=== PATIENT | female | born 1950 | race Caucasian/White ===

== ENCOUNTER → 2016-09-15 | Outpatient (CLI) | payer BC ==
[~2016-09-15] MED LIST: ALUM1SUS57 PO; CALC600T9 PO; CHOL1000 PO; CYAN10005 PO; FENO145T26 PO; FENO48TA9 PO; MULT-506 PO; MULTCAP7 PO; OMEGCAP2 PO; RANI150T3 PO; TRIATAB3 PO
--- NOTE | 2016-09-15 14:17 | MAMMOGRAPHY REPORT ---
BILATERAL DIGITAL SCREENING MAMMOGRAM WITH CAD: 09/15/2016 CLINICAL HISTORY: Routine screening. Patient has no complaints. TECHNIQUE: Current study was also evaluated with a Computer Aided Detection (CAD) system. Bilatera l CC and MLO views were obtained. COMPARISON: Comparison is made to exams dated: 09/14/2015 mammogram, 09/12/2014 mammogram, 06/10/2013 mammogram, 05/21/2012 mammogram, 05/18/2011 mammogram, and 04/20/2010 mammogram - [facility]. BREAST COMPOSITION: The tissue of both breasts is heterogeneously dense, which may obscure small ma sses. FINDINGS: No suspicious masses, calcifications, or areas of architectural distortion are noted in e ither breast. There has been no significant interval change compared to prior exams. Bilateral asym metries are stable compared to prior exams. IMPRESSION: ACR BI-RADS CATEGORY 2: BENIGN There is no mammographic evidence of malignancy. A 1 year screening mammogram is recommended. The p atient will receive written notification of the results. Approximately 10% of breast cancers are not detected with mammography. A negative mammographic repor t should not delay biopsy if a clinically suggestive mass is present. Jessica Brand M.D. /:09/15/2016 12:44:22 Restuarant Crew Worker: Grace NAVARRETE(Hemant)(Mary Grace)(PITO), [facility] letter sent: Normal 1/2 BI-RADS Code: ACR BI-RADS Category 2: Benign
--- NOTE | 2016-09-23 12:43 | CODING QUERY MEDICAL NECESSITY ---
: 1950 SUPPORTING DIAGNOSIS NEEDED A supporting diagnosis is required for the test/procedure performed on this patient in order for us to be reimbursed by the patient's insurance. Please provide a supporting diagnosis for the following test/procedure listed below next to the test name along with your signature. *If there is no additional diagnosis for this patient that would support the following test/procedure please document that below next to the test/procedure. Test(s)/Procedure(s) that require a supporting diagnosis: * BONE DENSITOMETRY DOS: 09/15/16 DIAGNOSIS: Provider Signature: Date: Thank you Zaina Larson [email or web address] Information Management Once completed, please kindly fax back to [phone] For questions please call [phone]
== END | disposition home or self-care (01) ==
LOC: C.MAMM 12:23
PROVIDERS: ATTEND Internal Medicine
DX: Z00.00 Encounter for general adult medical examination without abnormal findings (principal); Z12.31 Encounter for screening mammogram for malignant neoplasm of breast; M85.80 Other specified disorders of bone density and structure, unspecified site; E55.9 Vitamin D deficiency, unspecified

== ENCOUNTER → 2016-09-29 | Outpatient (CLI) | payer BC ==
[2016-09-29 09:42] LABS: BASO % 1.3 %; BASO ABS # 0.07 K/uL (0-0.2); COMPLETE YES; EOS % 3.5 %; HEMATOCRIT 40.7 % (37-47); IG% 0.2 %; LYMPH % 24.8 %; LYMPH ABS # 1.35 K/uL (1.2-3.4); MEAN CELL VOLUME 85.9 fL (80-100); MEAN CORPUSCULAR HEMOGLOBIN 28.7 pg (25-34); MEAN CORPUSCULAR HGB CONC 33.4 g/dl (32-36); MEAN PLATELET VOLUME 11.1 fL (7.4-10.4); MONO % 9.7 %; NEUT % 60.5 %; PLATELET COUNT 297 K/uL (130-400); RED BLOOD COUNT 4.74 M/uL (4.2-5.4); WHITE BLOOD COUNT 5.44 K/uL (4.8-10.8)
[2016-09-29 09:54] LABS: ALT/SGPT 18 U/L (12-78); BLOOD UREA NITROGEN 27 mg/dl (7-18); BUN/CREATININE RATIO 22.1 (10-20); CALCIUM 9.5 mg/dl (8.5-10.1); CARBON DIOXIDE 27 mmol/L (21-32); CHLORIDE 104 mmol/L (98-107); CHOLESTEROL 147 mg/dl (0-200); GLUCOSE 89 mg/dl (70-99); POTASSIUM 4.1 mmol/L (3.5-5.1); SODIUM 139 mmol/L (136-145); TRIGLYCERIDES 67 mg/dl (0-150); VERY LOW DENSITY LIPOPROT CALC 13 mg/dl
[2016-09-29 10:02] LABS: ALB/GLOB RATIO 1.1 (0.9-2); ALKALINE PHOSPHATASE 51 U/L (45-117); AST/SGOT 13 U/L (15-37); CHOLESTEROL/HDL RATIO 2.7; HDL CHOLESTEROL 55 mg/dl; LDL CHOLESTEROL CALCULATED 79 mg/dl
[2016-09-29 10:04] LABS: ESTIMATED AVERAGE GLUCOSE 108 mg/dl; HA1C FLAG Normal (Normal)
== END | disposition home or self-care (01) ==
LOC: C.LAB 08:56
PROVIDERS: ATTEND Internal Medicine
DX: E78.5 Hyperlipidemia, unspecified (principal); E55.9 Vitamin D deficiency, unspecified; M25.50 Pain in unspecified joint; R73.9 Hyperglycemia, unspecified

== ENCOUNTER → 2016-11-19 | Outpatient (CLI) | payer BC ==
--- NOTE | 2016-11-19 12:18 | DIAGNOSTIC IMAGING REPORT ---
RIGHT KNEE 4 VIEWS CLINICAL HISTORY: Right knee pain. Recent fall. FINDINGS: AP, crosstable lateral, tunnel, and sunrise views of the right knee are compared to study dated 12/21/2015. The skeletal structures are osteopenic. No fracture is seen. Irregularity/osteophyte formation along the medial tibial plateau is similar to previous. There is mild tricompartmental degenerative joint space narrowing, greatest at the patellofemoral articulation. No osteochondral defect is seen on the tunnel view. Marginal osteophytes are again noted. There is no joint effusion. Mild soft tissue swelling is present around the knee. IMPRESSION: Mild soft tissue swelling with no acute bony abnormality identified in the right knee. Electronically signed by: Qasim Kirkpatrick M.D. 11/19/2016 12:17 PM Dictated Date/Time: 11/19/2016 12:15 PM
--- NOTE | 2016-11-19 12:20 | DIAGNOSTIC IMAGING REPORT ---
RIGHT ANKLE 3 VIEWS CLINICAL HISTORY: Recent fall. Right ankle pain. FINDINGS: 3 views of the right ankle are obtained. No prior studies are available for comparison at the time of dictation. The skeletal structures are osteopenic. No fracture is seen. The ankle mortise is intact. There are dorsal and plantar calcaneal enthesophytes. No joint effusion is identified. Mild soft tissue swelling is noted. IMPRESSION: Mild soft tissue swelling with no radiographic evidence of right ankle fracture. Electronically signed by: Qasim Kirkpatrick M.D. 11/19/2016 12:18 PM Dictated Date/Time: 11/19/2016 12:17 PM
== END | disposition home or self-care (01) ==
LOC: C.RADBC 11:48
PROVIDERS: ATTEND Internal Medicine
DX: M25.561 Pain in right knee (principal); M25.571 Pain in right ankle and joints of right foot

== ENCOUNTER → 2016-12-23 | Outpatient (CLI) | payer BC | END | disposition home or self-care (01) | LOC: C.PAPS 11:47 | PROVIDERS: ATTEND Obstetrics & Gynecology | DX: Z01.419 Encounter for gynecological examination (general) (routine) without abnormal findings (principal) ==

== ENCOUNTER → 2017-05-22 | Day surgery (SDC) | payer BC ==
[2017-05-11 10:00] VITALS: BMI 27.0
[~2017-05-22] VITALS: Ht 165.1 cm; Wt 75.0 kg
[~2017-05-22] MED LIST changes: -FENO48TA9 PO; +LIDOCAINE HCL 2% 2 ML VIAL (20MG/ML) ONE; +PROPOFOL IV EMULSION 10 MG/ML 20 ML VIAL IV ONE
[2017-05-22 14:13] VITALS: Ht 165.1 cm; Wt 75.0 kg
[2017-05-22 14:19] VITALS: TEMP 36.5
--- NOTE | 2017-05-22 15:03 | Endo History and Physical ---
History & Physical Date of Service: May 22, 2017. Chief Complaint: HX OF POLYPS Referring Physician: DR JEFFRIES History of Present Illness 67 yo female who presents for colonoscopy secondary to history of colon polyps. Past Medical History High Cholesterol, Hypertension Past Surgical History Hx Cardiac Surgery: No Hx Internal Defibrillator: No Hx Pacemaker: No Hx Abdominal Surgery: No Hx of Implantable Prosthesis: No Hx Post-Op Nausea and Vomiting: No Hx Cancer Surgery: No Hx Thoracic Surgery: No Hx Orthopedic: No Hx Urinary Tract Surgery: No Family History None Social History Smoking Status: Former Smoker Hx Substance Use: No Hx Alcohol Use: Yes (OCCASIONAL/SOCIAL) Allergies Coded Allergies: Sulfa Antibiotics (Verified Allergy, Unknown, HIVES, 05/22/17) Current Medications Reported Home Medications Medications Dose Route/Sig Max Daily Dose Days Date Category Eye Vitamins (Multiple Vitamins W/ Minerals) 1 Cap Cap 1 Cap PO QAM 05/11/17 Reported Calcium + D (Calcium Carbonate-Vitamin D) 1 Tab Tab 1 Tab PO QAM 05/11/17 Reported Fish Oil ([place]-3 Fatty Acids) 1 Cap Cap 1 Cap PO QAM 05/11/17 Reported Vitamin B-12 (Cyanocobalamin) 1,000 Mcg Tab 1,000 Mcg PO QAM 05/11/17 Reported Vitamin D3 (Cholecalciferol) 1,000 Unit Tab 1 Tab PO QAM 05/11/17 Reported Mylanta Maximum Strength 400-400-40 mg/5Ml (Alum & Mag Hydrox-Simethicone) 1 [place] 1 Dose PO HS PRN 05/11/17 Reported Zantac (Ranitidine HCl) 150 Mg Tab 150 Mg PO HS 05/11/17 Reported Tricor (Fenofibrate) 145 Mg Tab 145 Mg PO QPM 05/11/17 Reported Multivitamin (Multivitamins) Tab 1 Tab PO QAM 05/13/15 Reported Triamterene/Hctz 37.5-25MG (Triamterene/HCTZ) 1 Tab Tab 1 Tab PO QPM 05/13/15 Reported Vital Signs Weight (Kilograms): 75.00 Height (Feet): 5 Height (Inches): 5 Date Time Temp Pulse Resp B/P (MAP) Pulse Ox O2 Delivery O2 Flow Rate FiO2 05/22/17 14:19 36.5 66 18 89/65 (73) 97 Room Air Physical Exam General Appearance: WD/WN, no apparent distress Respiratory/Chest: Auscultation: breath sounds normal Cardiovascular: Heart Auscultation: RRR Abdomen: Bowel Sounds: normal Inspection & Palpation: soft, non-distended, no tenderness, guarding & rebound Assessment and Plan Assessment: 67 yo female who presents for colonoscopy secondary to history of colon polyps. Plan: Proceed with colonoscopy.
--- NOTE | 2017-05-22 15:59 | Discharge Instructions ---
Endoscopy Patient Instructions Date / Procedure(s) Performed May 22, 2017. Colonoscopy Allergy Information Coded Allergies: Sulfa Antibiotics (Verified Allergy, Unknown, HIVES, 05/22/17) Discharge Date / Findings May 22, 2017. Internal hemorrhoids Medication Instructions Stopped Medication(s): VITAMINS OK to resume all medications today as prescribed Reported Home Medications Medications Dose Route/Sig Max Daily Dose Days Date Category Eye Vitamins (Multiple Vitamins W/ Minerals) 1 Cap Cap 1 Cap PO QAM 05/11/17 Reported Calcium + D (Calcium Carbonate-Vitamin D) 1 Tab Tab 1 Tab PO QAM 05/11/17 Reported Fish Oil ([place]-3 Fatty Acids) 1 Cap Cap 1 Cap PO QAM 05/11/17 Reported Vitamin B-12 (Cyanocobalamin) 1,000 Mcg Tab 1,000 Mcg PO QAM 05/11/17 Reported Vitamin D3 (Cholecalciferol) 1,000 Unit Tab 1 Tab PO QAM 05/11/17 Reported Mylanta Maximum Strength 400-400-40 mg/5Ml (Alum & Mag Hydrox-Simethicone) 1 [place] 1 Dose PO HS PRN 05/11/17 Reported Zantac (Ranitidine HCl) 150 Mg Tab 150 Mg PO HS 05/11/17 Reported Tricor (Fenofibrate) 145 Mg Tab 145 Mg PO QPM 05/11/17 Reported Multivitamin (Multivitamins) Tab 1 Tab PO QAM 05/13/15 Reported Triamterene/Hctz 37.5-25MG (Triamterene/HCTZ) 1 Tab Tab 1 Tab PO QPM 05/13/15 Reported Provider Instructions Activity Restrictions - No exercising or heavy lifting for 24 hours. - Do not drink alcohol the day of the procedure. - Do not drive a car or operate machinery until the day after the procedure. - Do not make any important decisions or sign important papers in 24 hours after the procedure. Following Day: - Return to full activity which may include returning to work/school. Diet Start your diet with liquids and light foods (jello, soup, juice, toast). Then eat your usual diet if not nauseated. Treatment For Common After Affects For mild abdominal pain, bloating, or excessive gas: - Rest - Eat lightly - Lie on right side Follow-Up Information Follow-up with DR JEFFRIES as scheduled Anesthesia Information What You Should Know You have had a procedure that required some medicine to reduce anxiety and discomfort. This treatment is called moderate sedation. After receiving the treatment, you may be sleepy, but you will be able to breathe on your own. The effects of the treatment may last for several hours. Follow these instructions along with Activity/Diet recommendations noted above: * Do NOT do anything where dizziness or clumsiness would be dangerous. * Rest quietly at home today, then you can be up and about tomorrow. * Have a responsible person stay with you the rest of today. * You may have had an I.V. today. If so, you may take the dressing off later today. Recommendations Call your doctor if: * Trouble breathing * Continuous vomiting for more than 24 hours * Temperature above 101 degrees * Severe abdominal pain or bloating * Pain not relieved by pain medicine ordered * There is increased drainage or redness from any incision * A large amount of rectal bleeding greater than 2-3 tablespoons. (If you had a polyp/s removed or have hemorrhoids, a small amount of blood - from the rectum is to be expected.) * You have any unanswered questions or concerns. IN THE EVENT OF A SERIOUS EMERGENCY, GO TO THE NEAREST EMERGENCY ROOM Your discharge instructions were prepared by provider Craig Salgado. Patient Instructions Signature Page Jael Castillo Patient (or Guardian) Signature/Date: I have read and understand the instructions given to me by my caregivers. Caregiver/RN/Doctor Signature/Date: The above-named patient and/or guardian has received patient instructions on this date. + Original Patient Signature Page (only) stays with chart. Please make copy for patient.
--- NOTE | 2017-05-22 16:05 | GI REPORT ---
Procedure Date: 05/22/2017 3:04 PM Procedure: Colonoscopy Indications: High risk colon cancer surveillance: Personal history of colonic polyps Medicines: Monitored Anesthesia Care Complications: No immediate complications. Estimated Blood Loss: Estimated blood loss: none. Procedure: Pre-Anesthesia Assessment: - Prior to the procedure, a History and Physical was performed, and patient medications and allergies were reviewed. The patient's tolerance of previous anesthesia was also reviewed. The risks and benefits of the procedure and the sedation options and risks were discussed with the patient. All questions were answered, and informed consent was obtained. Prior Anticoagulants: The patient has taken no previous anticoagulant or antiplatelet agents. ASA Grade Assessment: II - A patient with mild systemic disease. After reviewing the risks and benefits, the patient was deemed in satisfactory condition to undergo the procedure. After I obtained informed consent, the scope was passed under direct vision. Throughout the procedure, the patient's blood pressure, pulse, and oxygen saturations were monitored continuously. The On-site loaner was introduced through the anus and advanced to the terminal ileum. The colonoscopy was performed without difficulty. The patient tolerated the procedure well. The quality of the bowel preparation was good. The terminal ileum, ileocecal valve, appendiceal orifice, and rectum were photographed. Findings: Non-bleeding internal hemorrhoids were found during retroflexion. The hemorrhoids were small. The exam was otherwise without abnormality. Impression: - Non-bleeding internal hemorrhoids. - The examination was otherwise normal. - No specimens collected. Recommendation: - Resume previous diet. - Continue present medications. - Repeat colonoscopy in 5 years for surveillance. - Return to primary care physician as previously scheduled. Craig Salgado, DO 05/22/2017 4:04:37 PM This report has been signed electronically. Note Initiated On: 05/22/2017 3:04 PM I attest to the content of the Intraoperative Record and orders documented therein, exceptions below
[2017-05-22 16:10] VITALS: BP 112/73; PULSE 77; O2SAT 100
--- NOTE | 2017-05-22 16:18 | Anesthesiology Progress Note ---
Anesthesia Post Op Note Date & Time May 22, 2017 at 16:18 Vital Signs Pain Intensity: 0 Vital Signs Past 12 Hours Date Time Temp Pulse Resp B/P (MAP) Pulse Ox O2 Delivery O2 Flow Rate FiO2 05/22/17 16:10 77 20 112/73 (86) 100 Room Air 05/22/17 15:55 63 18 107/65 (79) 100 Room Air 05/22/17 15:40 61 16 94/58 (70) 99 Room Air 05/22/17 14:19 36.5 66 18 89/65 (73) 97 Room Air Notes Mental Status: alert / awake / arousable, participated in evaluation Pt Amnestic to Procedure: Yes Nausea / Vomiting: adequately controlled Pain: adequately controlled Airway Patency, RR, SpO2: stable & adequate BP & HR: stable & adequate Hydration State: stable & adequate Anesthetic Complications: no major complications apparent
== END | disposition home or self-care (01) ==
LOC: C.GI 13:41
PROVIDERS: ATTEND Internal Medicine
DX: Z12.11 Encounter for screening for malignant neoplasm of colon (principal); Z86.010 Personal history of colon polyps; K64.8 Other hemorrhoids; I10 Essential (primary) hypertension; E78.00 Pure hypercholesterolemia, unspecified; Z87.891 Personal history of nicotine dependence; Z79.899 Other long term (current) drug therapy

== ENCOUNTER → 2017-10-25 | Outpatient (CLI) | payer OTHER ==
[~2017-10-25] MED LIST changes: -LIDOCAINE HCL 2% 2 ML VIAL (20MG/ML) ONE; -PROPOFOL IV EMULSION 10 MG/ML 20 ML VIAL IV ONE
== END | disposition home or self-care (01) ==
LOC: C.LABSPEC 15:56
PROVIDERS: ATTEND Dermatology
DX: B35.1 Tinea unguium (principal)

== ENCOUNTER → 2017-11-14 | Outpatient (CLI) | payer OTHER ==
--- NOTE | 2017-11-15 14:14 | MAMMOGRAPHY REPORT ---
BILATERAL DIGITAL SCREENING MAMMOGRAM TOMOSYNTHESIS WITH CAD: 11/14/2017 CLINICAL HISTORY: Routine screening. Patient has no complaints. TECHNIQUE: Breast tomosynthesis in addition to standard 2D mammography was performed. Current study was also evaluated with a Computer Aided Detection (CAD) system. COMPARISON: Comparison is made to exams dated: 09/15/2016 mammogram, 09/14/2015 mammogram, 09/12/2014 m ammogram, 06/10/2013 mammogram, 05/21/2012 mammogram, and 05/18/2011 mammogram - [facility]. BREAST COMPOSITION: The tissue of both breasts is heterogeneously dense, which may obscure small mas ses. FINDINGS: No suspicious masses, calcifications, or areas of architectural distortion are noted in ei ther breast. There has been no significant interval change compared to prior exams. Bilateral asymme tries are stable compared to prior exams. IMPRESSION: ACR BI-RADS CATEGORY 2: BENIGN There is no mammographic evidence of malignancy. A 1 year screening mammogram is recommended. The pa tient will receive written notification of the results. Approximately 10% of breast cancers are not detected with mammography. A negative mammographic report should not delay biopsy if a clinically suggestive mass is present. Jessica Brand M.D. /:11/14/2017 15:35:36 Furniture Stainer: Mague PEARL)(M), [facility] letter sent: Normal 1/2 BI-RADS Code: ACR BI-RADS Category 2: Benign
== END | disposition home or self-care (01) ==
LOC: C.MAMM 14:54
PROVIDERS: ATTEND Obstetrics & Gynecology
DX: Z12.31 Encounter for screening mammogram for malignant neoplasm of breast (principal)

== ENCOUNTER → 2018-01-17 | Outpatient (CLI) | payer OTHER | END | disposition home or self-care (01) | LOC: C.LABSPEC 15:55 | PROVIDERS: ATTEND Obstetrics & Gynecology | DX: R39.9 Unspecified symptoms and signs involving the genitourinary system (principal) ==

== ENCOUNTER → 2018-04-20 | Outpatient (CLI) | payer OTHER | END | disposition home or self-care (01) | LOC: C.LABSPEC 16:22 | PROVIDERS: ATTEND Internal Medicine | DX: R39.9 Unspecified symptoms and signs involving the genitourinary system (principal) ==

== ENCOUNTER 2025-05-04 19:52 | Inpatient (IN) ==
--- NOTE | 2025-05-04 20:09 | Emergency Department Note ---
Impression & Plan Fracture of femoral neck, left, Fall, Hip pain, left ED Provider Note CHIEF COMPLAINT: Tripped and fell on left leg HISTORY OF PRESENTING ILLNESS: The patient is a 75-year-old female who presents to the emergency department due to tripping and falling while mowing her lawn this evening. She confirms that she had fallen down onto the concrete on her left side. She was able to catch herself with her left arm and elbow. She denies hitting her head, LOC, and is not on blood thinners. She reports an abrasion to her left elbow but has full range of motion without pain. The pain is in her left hip and left leg. She is able to ambulate with a walker but is in discomfort. She denies numbness or tingling, pain radiating down the leg, neck pain, headache, chest pain, shortness of breath, abdominal pain. REVIEW OF SYSTEMS: See HPI for pertinent positives and pertinent negatives. ALLERGIES: Sulfa antibiotics MEDICATIONS: See below PAST MEDICAL HISTORY: See below PHYSICAL EXAM: VITALS: Vitals are noted on the nurses note and reviewed by myself. Vital signs stable. GENERAL: 75-year-old female, in no acute distress, nondiaphoretic, well- developed well-nourished. SKIN: Capillary refill less than 2 seconds. HEENT: Normocephalic. PERRLA. EOMI. Nares patent. Mucous membranes moist. Neck is supple without nuchal rigidity. Neck FROM. HEART: Regular rate and rhythm without murmurs gallops or rubs. LUNGS: CTA BL without wheezes, rales or rhonchi. No retractions or accessory muscle use. ABDOMEN: Soft, nontender, without masses or organomegaly. No guarding or rebound tenderness. MUSCULOSKELETAL: Tenderness upon palpation to the left hip. Pain with passive ROM. Patient has full range of motion but most significant pain with flexion. She is ambulating with a walker. 2+ dorsalis pedis pulse palpated bilaterally. No gross deformity. NEURO: Patient was alert and oriented to person place and time. Normal sensation to light and sharp touch. No focal neurological deficits. DIFFERENTIAL DIAGNOSIS: Femoral neck fracture, intertrochanteric fracture, subtrochanteric fracture, acetabular fracture, hip dislocation, pelvic fracture, hip contusion, muscle/tendon injury, lumbar spine injury, among others. ED COURSE AND MEDICAL DECISION MAKING: HISTORY FROM INDEPENDENT HISTORIAN: The patient herself. MEDICATIONS GIVEN: Denies the need for pain or symptom management. INTERPRETATION OF LABS: No labs were obtained. INTERPRETATION OF IMAGING: Imaging studies were interpreted by myself and read by radiology as per the imaging section of this note. X-ray left hip and pelvis - Subcapital femoral neck fracture on the left. CONSULTATION: On-call [facility]oped[facility] - Dr. Robert - Discussed the patient's presentation and he evaluated the images. He request admission to medicine and that he will evaluate the patient in the morning for operation. On-call [facility] hospitalist - Presented the patient to the provider as well as my discussion with the orthopedic surgeon who will evaluate the patient in the morning for operation. They agreed to admitting the patient to medicine. MDM SUMMARY: I evaluated the 75-year-old female who presents to the emergency department due falling while she was mowing onto her left side. See HPI and physical exam above. Patient's vitals are stable. She denies the need for pain or symptom management. She is able to ambulate with a walker but with discomfort. X-rays of the hip and femur were ordered showing a femoral neck fracture. Results were reviewed with the patient. A consultation with the on-call orthopedic provider can be seen in detail above. Recommended admission to medicine and that they will evaluate the patient tomorrow morning for possible operation. Patient is agreeable to the outlined treatment plan. She still denies the need for pain or symptom management. The patient was presented to the hospitalist which can be seen in detail above. All of her questions were answered. The patient was admitted to medicine in stable condition. DIAGNOSIS: Fracture of femoral neck left, fall, left hip pain The chart was completed utilizing [employer] Speech voice recognition software. Grammatical errors, random word insertions, pronoun errors, and incomplete sentences are an occasional consequence of this system due to software limitations, ambient noise, and hardware issues. Any formal questions or concerns about the content, text, or information contained within the body of this dictation should be directly addressed to the provider for clarification. Past Med/Surg History Problem List Hip pain, left (Acute) Fall (Acute) Fracture of femoral neck, left (Acute) Hypokalemia Subcapital fracture of left femur Vitamin D deficiency disease Epigastric discomfort Adjustment disorder Onychomycosis of great toe Prediabetes (Acute) Multiple thyroid nodules (Chronic) Laryngopharyngeal reflux (Acute) Internal hemorrhoids (Acute) Hiatal hernia (Acute) Benign colonic polyp (Acute) Postmenopausal Osteopenia (Acute) Hypertension (Chronic) Hyperlipidemia (Chronic) GERD without esophagitis (Acute) Medical History Tinnitus, bilateral Sensorineural hearing loss (SNHL) of both ears Decreased hearing History of pelvic fracture Acquired deviated nasal septum Actinic keratosis Allergic rhinitis due to dust Arthralgia of multiple sites Atypical nevi Hip bursitis, left Hip pain, bilateral Pain in both knees Seborrheic keratosis, inflamed Sleep disturbance Xerosis of skin Insomnia Multiple fractures of ribs of right side (12/31/22) Frequency of urination Sleep apnea Serum calcium elevated Surgical History History of colonoscopy No history of previous surgery Family History Mother Breast cancer Father Cancer Grandfather (Maternal) Myocardial infarction Daughter Breast cancer Brother Prostate cancer Other Leiomyoma Denies family history of Ovarian cancer Colorectal cancer Social History Smoking Status: Former smoker Tobacco Type: Cigarettes Age Started Using Tobacco: 21; Age Quit Using Tobacco: 35; packs per day: 1.5; Second Hand Exposure: No; Do You Dip or Chew Tobacco: No; Tobacco Cessation Education Requested by Patient: No Hx Alcohol Use: Yes Alcohol type: wine Hx Substance Use: No Preferred Language: Albanian Communication Ability: Effective 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 Beliefs That Will Affect Care: None marital status: Current Living Situation: Spouse current occupational status: employed current occupation: [employer] Other Information That Helps Us Care for You: No Feels Safe at Home: Yes Safety Concerns: Feels Safe At This Time Childhood Exposure to Second-Hand Smoke: No Dental Care, Regularly: Yes Physical Activity Frequency: 1-2 Times per Week Seatbelt Use: always Sunscreen Use: No Assistive Devices: Cane, Stair Lift and Walker Allergies Allergies Allergy/AdvReac Type Severity Reaction Status Date / Time Sulfa (Sulfonamide Allergy Unknown HIVES Verified 05/04/25 22:27 Antibiotics) Home Meds Home Medications Medication Instructions Recorded Confirmed cholecalciferol (vitamin D3) 125 5,000 units PO QPM 05/16/19 05/04/25 mcg (5,000 unit) capsule cyanocobalamin (vitamin B-12) 100 100 mcg PO QPM 05/16/19 05/04/25 mcg tablet omega [id number]-[id number]-fish oil 60 mg-90 1 cap PO QPM 05/20/19 05/04/25 mg-500 mg capsule multivitamin 1 tab PO QPM 01/20/22 05/04/25 vitamins A,C,M-glyq-rvfold 4,296 2 cap PO QPM 01/20/22 05/04/25 mcg-226 mg-90 mg capsule (PreserVision AREDS) loratadine 10 mg tablet 10 mg PO QPM 05/04/25 05/04/25 melatonin 3 mg tablet 9 mg PO HS 05/04/25 05/04/25 Previous Rx's Medication Instructions Recorded metformin 500 mg tablet 500 mg PO TIDWMEAL #270 tabs 12/02/24 fenofibrate nanocrystallized 145 145 mg PO QPM #90 tabs 12/19/24 mg tablet esomeprazole magnesium 40 mg 40 mg PO DAILY #90 caps 12/24/24 capsule,delayed release bupropion HCl 75 mg tablet 75 mg PO DAILY #90 tabs 01/02/25 amlodipine 5 mg tablet 5 mg PO QPM #90 tabs 01/13/25 triamterene 37.5 1 tab PO QPM #90 tabs 02/03/25 mg-hydrochlorothiazide 25 mg tablet Results & Data (ED) Vital Signs Vital Signs - 24 hr 05/04/25 20:00 Temperature 36.5 C Temperature Source Temporal Artery Scan Pulse Rate 94 H Respiratory Rate 18 Respiratory Effort / Characteristics Non-Labored Spontaneous Respiratory Depth Normal Respiratory Pattern Regular Blood Pressure 134/83 Blood Pressure Mean 100 Blood Pressure Position Sitting Pulse Oximetry 98 Sepsis Recent Fever Within 48 Hours No Sepsis New/Unexplained Change in Mental Status N/A Sepsis Action Taken by Nursing No Action Required Laboratory Data 05/07/25 09:48 05/07/25 09:48 Administered Medications Acetaminophen (Acetaminophen 500 Mg Tab) 1,000 mg PO Q8@0000,0800,1600 JESUS MANUEL Stop: 06/04/25 18:59 Last Admin: 05/07/25 08:31 Dose: 1,000 mg Documented By: Admin: 05/06/25 22:52 Dose: 1,000 mg Documented By: Admin: 05/06/25 16:07 Dose: 1,000 mg Documented By: Admin: 05/06/25 07:39 Dose: 1,000 mg Documented By: Admin: 05/05/25 20:53 Dose: 1,000 mg Documented By: JOSHUA Amlodipine Besylate (Amlodipine Besylate 5 Mg Tab) 5 mg PO QPM JESUS MANUEL Stop: 06/04/25 20:59 Last Admin: 05/06/25 21:03 Dose: 5 mg Documented By: Admin: 05/05/25 20:52 Dose: 5 mg Documented By: JOSHUA Aspirin (Aspirin 81 Mg Ectab) 81 mg PO BID JESUS MANUEL Stop: 06/05/25 08:59 Last Admin: 05/07/25 08:33 Dose: 81 mg Documented By: Admin: 05/06/25 21:03 Dose: 81 mg Documented By: Admin: 05/06/25 08:47 Dose: 81 mg Documented By: JENNIFER Bupropion HCl (Bupropion Hcl 75 Mg Tablet) 75 mg PO DAILY JESUS MANUEL Stop: 06/04/25 08:59 Last Admin: 05/07/25 08:34 Dose: 75 mg Documented By: Admin: 05/06/25 08:47 Dose: 75 mg Documented By: Admin: 05/05/25 07:52 Dose: 75 mg Documented By: JENNIFER Cyanocobalamin (Cyanocobalamin (B-12) 100 Mcg Tablet) 100 mcg PO QPM JESUS MANUEL Stop: 06/04/25 20:59 Last Admin: 05/06/25 21:03 Dose: 100 mcg Documented By: Admin: 05/05/25 20:52 Dose: 100 mcg Documented By: JOSHUA Fenofibrate (Fenofibrate Nanocrystallized 145 Mg Tablet) 145 mg PO QPM JESUS MANUEL Stop: 06/04/25 20:59 Last Admin: 05/06/25 21:03 Dose: 145 mg Documented By: Admin: 05/05/25 20:52 Dose: 145 mg Documented By: JOSHUA Fluticasone Propionate (Fluticasone Propionate Na Spr 16 Gm Btl) 2 sprays NA DAILY JESUS MANUEL Stop: 06/05/25 08:59 Last Admin: 05/07/25 08:34 Dose: 2 sprays Documented By: Admin: 05/06/25 08:47 Dose: Not Given Documented By: Admin: 05/05/25 22:36 Dose: 2 sprays Documented By: JOSHUA Loratadine (Loratadine 10 Mg Tab) 10 mg PO QPM JESUS MANUEL Stop: 06/04/25 20:59 Last Admin: 05/06/25 21:03 Dose: 10 mg Documented By: Admin: 05/05/25 20:52 Dose: 10 mg Documented By: JOSHUA Melatonin (Melatonin 3 Mg Tab) 9 mg PO HS JESUS MANUEL Stop: 06/04/25 20:59 Last Admin: 05/06/25 21:03 Dose: 9 mg Documented By: Admin: 05/05/25 20:53 Dose: 9 mg Documented By: JOSHUA Methocarbamol (Methocarbamol 500 Mg Tablet) 500 mg PO BID PRN PRN Reason: Muscle Spasm Stop: 06/05/25 08:22 Last Admin: 05/06/25 22:52 Dose: 500 mg Documented By: Admin: 05/06/25 08:54 Dose: 500 mg Documented By: JENNIFER Pantoprazole Sodium (Pantoprazole 40 Mg Tab) 40 mg PO DAILY JESUS MANUEL Stop: 06/04/25 08:59 Last Admin: 05/07/25 08:33 Dose: 40 mg Documented By: Admin: 05/06/25 08:47 Dose: 40 mg Documented By: Admin: 05/05/25 07:52 Dose: 40 mg Documented By: JENNIFER Vitamin D (Cholecalciferol 125 Mcg (5,000 Units) Tab) 125 mcg PO QPM JESUS MANUEL Stop: 06/04/25 20:59 Last Admin: 05/06/25 21:03 Dose: 125 mcg Documented By: Admin: 05/05/25 20:53 Dose: 125 mcg Documented By: JOSHUA Discontinued Medications Acetaminophen (Acetaminophen 325 Mg Tab) 650 mg PO Q6H PRN PRN Reason: Pain & Pre PT Stop: 06/03/25 22:08 Last Admin: 05/05/25 14:11 Dose: 650 mg Documented By: Admin: 05/05/25 07:52 Dose: 650 mg Documented By: Admin: 05/04/25 23:37 Dose: 650 mg Documented By: LIZA Bupivacaine HCl/Epinephrine Bitart (Bupivacaine/Epinephrine 0.5% Mpf 1:200,000 30 Ml Vial) Confirm Administered Dose 30 ml .ROUTE .STK-MED ONE Stop: 05/05/25 16:15 Last Admin: 05/05/25 17:49 Dose: 5 ml Documented By: ADDISON Cefazolin Sodium (Cefazolin 2,000 Mg/15 Ml Iv Push) Confirm Administered Dose 2,000 mg IV .STK-MED ONE Stop: 05/05/25 15:55 Last Admin: 05/05/25 17:13 Dose: Not Given Documented By: ILENE Celecoxib (Celecoxib 100 Mg Cap) 100 mg PO QAM JESUS MANUEL Stop: 06/05/25 08:59 Last Admin: 05/07/25 08:33 Dose: 100 mg Documented By: Admin: 05/06/25 08:47 Dose: 100 mg Documented By: JENNIFER Diphenhydramine HCl (Diphenhydramine 50 Mg/Ml Vial) 25 mg IV NOW STA Stop: 05/04/25 23:20 Last Admin: 05/05/25 01:31 Dose: Not Given Documented By: [id number] Diphenhydramine HCl (Diphenhydramine Capsule 25 Mg Cap) 25 mg PO NOW ONE Stop: 05/05/25 01:15 Last Admin: 05/05/25 01:40 Dose: 25 mg Documented By: [id number] Diphenhydramine HCl (Diphenhydramine Capsule 25 Mg Cap) 25 mg PO NOW ONE Stop: 05/05/25 23:04 Last Admin: 05/05/25 23:13 Dose: 25 mg Documented By: JOSHUA Potassium Chloride (K Saroj / Wtr) 10 meq in 100 mls @ 100 mls/hr IV ONE ONE Stop: 05/05/25 02:46 Last Infusion: 05/05/25 02:23 Dose: Infused Documented By: [id number] Infusion: 05/05/25 02:16 Dose: 0 mls/hr Documented By: [id number] Admin: 05/05/25 02:10 Dose: 100 mls/hr Documented By: [id number] Sodium Chloride (Nss) 1,000 mls @ 100 mls/hr IV .Q10H JESUS MANUEL Stop: 05/08/25 08:44 Last Infusion: 05/06/25 10:04 Dose: Infused Documented By: Admin: 05/06/25 04:10 Dose: 100 mls/hr Documented By: Infusion: 05/06/25 04:10 Dose: Infused Documented By: Admin: 05/05/25 18:52 Dose: 100 mls/hr Documented By: Infusion: 05/05/25 18:52 Dose: Infused Documented By: Admin: 05/05/25 10:35 Dose: 100 mls/hr Documented By: JENNIFER Cefazolin Sodium (Ancef 2000mg) 2,000 mg in 15 mls @ 3.75 mls/min IV PREOP ONE; Protocol Stop: 05/05/25 09:24 Last Admin: 05/05/25 16:21 Dose: 3.75 mls/min Documented By: [id number] Tranexamic Acid (Tranexamic Acid / 0.7% Nacl) 1,000 mg in 100 mls @ 600 mls/hr IV PREOP ONE Stop: 05/05/25 09:30 Last Infusion: 05/05/25 18:50 Dose: Infused Documented By: Admin: 05/05/25 16:25 Dose: 600 mls/hr Documented By: [id number] Potassium Chloride (K Saroj / Wtr) 10 meq in 100 mls @ 100 mls/hr IV Q1H JESUS MANUEL Stop: 05/05/25 13:29 Last Admin: 05/05/25 13:32 Dose: Not Given Documented By: Infusion: 05/05/25 12:57 Dose: Infused Documented By: Admin: 05/05/25 11:57 Dose: 100 mls/hr Documented By: JENNIFER Magnesium Sulfate/Dextrose (Magnesium Sulfate / D5w) 1 gm in 100 mls @ 50 mls/hr IV ONE ONE Stop: 05/05/25 16:15 Last Infusion: 05/05/25 18:50 Dose: Infused Documented By: Admin: 05/05/25 14:45 Dose: 50 mls/hr Documented By: JENNIFER Cefazolin Sodium (Ancef 1000mg) 1,000 mg in 7.5 mls @ 2.5 mls/min IV Q8H JESUS MANUEL; Protocol Stop: 05/06/25 08:02 Last Admin: 05/06/25 08:44 Dose: 2.5 mls/min Documented By: Admin: 05/05/25 23:13 Dose: 2.5 mls/min Documented By: JOSHUA Lidocaine HCl (Lidocaine 1% Local 20 Ml Vial) Confirm Administered Dose 20 ml .ROUTE .STK-MED ONE Stop: 05/05/25 16:14 Last Admin: 05/05/25 17:49 Dose: 5 ml Documented By: ADDISON Magnesium Oxide (Magnesium Oxide 400 Mg Tab) 400 mg PO BID JESUS MANUEL Stop: 05/06/25 21:01 Last Admin: 05/06/25 21:04 Dose: 400 mg Documented By: Admin: 05/06/25 10:50 Dose: 400 mg Documented By: RRD Melatonin (Melatonin 3 Mg Tab) 3 mg PO HS PRN PRN Reason: Insomnia Stop: 06/04/25 00:23 Last Admin: 05/05/25 00:53 Dose: 3 mg Documented By: [id number] Potassium Chloride (Potassium Chloride Crtab 20 Meq Tabcr) 20 meq PO ONE ONE Stop: 05/05/25 21:01 Last Admin: 05/05/25 20:53 Dose: 20 meq Documented By: JOSHUA Tranexamic Acid (Tranexamic Acid / 0.7% Nacl 1000mg/100ml Bag) Confirm Administered Dose 1,000 mg IV .STK-MED ONE Stop: 05/05/25 15:55 Last Admin: 05/05/25 17:51 Dose: Not Given Documented By: ILENE Discharge Plan Visit Data Chief Complaint: Fall Stated Complaint: TRIPPED AND FALL ON LEFT LEG ED Provider: Wero Leroy ED Midlevel Provider: Milady Rothman Discharge Problem: Fracture of femoral neck, left, Fall, Hip pain, left Patient Disposition: Admitted As Inpatient Condition: Good Discharge Instructions Interventions: ED Discharge Assessment Last Done: 05/04/25 23:50 Discharge Problem: Fracture of femoral neck, left Qualifiers: Encounter type: initial encounter Fracture type: closed Qualified Code(s): S 72.002A - Fracture of unspecified part of neck of left femur, initial encounter for closed fracture Fall Qualifiers: Encounter type: initial encounter Qualified Code(s): W19.XXXA - Unspecified fall, initial encounter
--- NOTE | 2025-05-04 21:54 | History & Physical Report ---
Date of Service May 04, 2025 Assessment & Plan (1) Subcapital fracture of left femur: (2) Hypokalemia: Plan 75-year-old female PMHx prediabetes, HTN, thyroid nodules, laryngeal pharyngeal reflux, HLD, GERD, and vitamin D deficiency presenting after a fall onto her left hip while mowing the lawn on the day of arrival. Not on blood thinners. Did not hit head. L subcapital femoral neck fracture identified, also in setting of mild hypokalemia and mild leukocytosis. Admit for hip fracture, will correct electrolytes as well. #L hip fracture/Fall Pt presenting after mechanical fall, landed on L hip and having "some" pain. No precipitating symptoms. Resting comfortably. - CBC leukocytosis 13.19, H/H 13.1/41.7; PT/INR WNL; CMP K 3.4, BUN/Cr ratio 24.1, glucose 117 - CBC, BMP am - UA negative for infection - CXR no acute findings - Femur XR/Pelvis XR L subcapital femoral neck fx L - Fall precautions - NPO midnight - Acetaminophen prn fever/pain, morphine prn severe pain - Continue IVF LR @ 100 mL/hr - Ortho consulted - appreciate input + recs #Hypokalemia Asymptomatic currently. - K 3.4, Mg pending - BMP am - 10 mEq KCl IV - EKG pending #HTN- Triamterene/Chlorothiazide, amlodipine - continue #Hypercholesterolemia- Fenofibrate - continue #Prediabetes- Glucose on admission 117; Metformin at baseline; SSI deferred at admission, BSG ACHS once eating #GERD- Esomeprazole - continue Dispo: Admit, med/sx VTE Prophylaxis: HOLD at admission, ? surgical intervention -- add once medically appropriate This document was dictated utilizing [employer] Zebra. Please excuse any grammatical errors that may be secondary to use of this software. Admission and Anticipated Discharge Date Admission Date: 05/04/2025 History of Present Illness Chief Complaint: Fall, hip pain Primary Care Provider: Jose Cruz MD 75-year-old female PMHx prediabetes, HTN, thyroid nodules, laryngeal pharyngeal reflux, HLD, GERD, and vitamin D deficiency presenting after a fall onto her left hip while mowing the lawn on the day of arrival. Not on blood thinners. Denies any symptoms prior to the fall to include chest pain, SOB, palpitations, dizziness, or pre-syncope. No syncope. Had immediate pain to L hip and felt slightly nauseous at that time which resolves. States that her pain is "there" but manageable at this time. She denies additional pain or concerns. She is trying to have her laptop brought in so she is able to complete further work. History is limited. Evaluation reveals CBC leukocytosis 13.19, H/H stable; PT/INR WNL; CMP K 3.4, BUN/Cr ratio 24.1, glucose 117; CXR no acute findings; Femur XR/Pelvis XR subcapital fracture of L femoral neck; EKG pending. Please see Dr. Khan's attestation for adjustments/additions to treatment plan. Allergies Allergy/AdvReac Type Severity Reaction Status Date / Time Sulfa (Sulfonamide Allergy Unknown HIVES Verified 05/04/25 22:27 Antibiotics) Home Medications Medication Instructions Recorded Confirmed Type cholecalciferol (vitamin D3) 125 5,000 units PO QPM 05/16/19 05/04/25 History mcg (5,000 unit) capsule cyanocobalamin (vitamin B-12) 100 100 mcg PO QPM 05/16/19 05/04/25 History mcg tablet omega 6-ngo-yst-fish oil 60 mg-90 1 cap PO QPM 05/20/19 05/04/25 History mg-500 mg capsule multivitamin 1 tab PO QPM 01/20/22 05/04/25 History vitamins A,C,S-pres-ghqgjt 4,296 2 cap PO QPM 01/20/22 05/04/25 History mcg-226 mg-90 mg capsule (PreserVision AREDS) metformin 500 mg tablet 500 mg PO TIDWMEAL #270 tabs 12/02/24 05/04/25 Rx fenofibrate nanocrystallized 145 145 mg PO QPM #90 tabs 12/19/24 05/04/25 Rx mg tablet esomeprazole magnesium 40 mg 40 mg PO DAILY #90 caps 12/24/24 05/04/25 Rx capsule,delayed release bupropion HCl 75 mg tablet 75 mg PO DAILY #90 tabs 01/02/25 05/04/25 Rx amlodipine 5 mg tablet 5 mg PO QPM #90 tabs 01/13/25 05/04/25 Rx triamterene 37.5 1 tab PO QPM #90 tabs 02/03/25 05/04/25 Rx mg-hydrochlorothiazide 25 mg tablet loratadine 10 mg tablet 10 mg PO QPM 05/04/25 05/04/25 History melatonin 3 mg tablet 9 mg PO HS 05/04/25 05/04/25 History Past Med/Surg History Problem List (Updated 05/05/25 @ 01:51 by Heladio Adam PA-C) Hypokalemia Subcapital fracture of left femur Vitamin D deficiency disease Epigastric discomfort Adjustment disorder Onychomycosis of great toe Prediabetes (Acute) Multiple thyroid nodules (Chronic) Laryngopharyngeal reflux (Acute) Internal hemorrhoids (Acute) Hiatal hernia (Acute) Benign colonic polyp (Acute) Postmenopausal Osteopenia (Acute) Hypertension (Chronic) Hyperlipidemia (Chronic) GERD without esophagitis (Acute) Medical History Tinnitus, bilateral Sensorineural hearing loss (SNHL) of both ears Decreased hearing History of pelvic fracture Acquired deviated nasal septum Actinic keratosis Allergic rhinitis due to dust Arthralgia of multiple sites Atypical nevi Hip bursitis, left Hip pain, bilateral Pain in both knees Seborrheic keratosis, inflamed Sleep disturbance Xerosis of skin Insomnia Multiple fractures of ribs of right side (12/31/22) Frequency of urination Sleep apnea Serum calcium elevated Surgical History History of colonoscopy No history of previous surgery Family History Mother Breast cancer Father Cancer Grandfather (Maternal) Myocardial infarction Daughter Breast cancer Brother Prostate cancer Other Leiomyoma Denies family history of Ovarian cancer Colorectal cancer Social History Smoking Status: Former smoker Tobacco Type: Cigarettes Age Started Using Tobacco: 21; Age Quit Using Tobacco: 35; packs per day: 1.5; Second Hand Exposure: No; Do You Dip or Chew Tobacco: No; Tobacco Cessation Education Requested by Patient: No Hx Alcohol Use: Yes Alcohol type: wine Hx Substance Use: No Preferred Language: Latvian Communication Ability: Effective Chemical Pathologist Required: No Beliefs That Will Affect Care: None marital status: Current Living Situation: Spouse current occupational status: employed current occupation: [employer] Other Information That Helps Us Care for You: No Feels Safe at Home: Yes Safety Concerns: Feels Safe At This Time Childhood Exposure to Second-Hand Smoke: No Dental Care, Regularly: Yes Physical Activity Frequency: 1-2 Times per Week Seatbelt Use: always Sunscreen Use: No Assistive Devices: Walker Review of Systems Review of Systems: All systems reviewed & are unremarkable except as noted in Subjective Physical Exam Physical Exam: General: No acute distress Skin: Warm and dry Head: Normocephalic, atraumatic Eyes: PERRL, conjunctivae clear, sclera non-icteric; wearing glasses ENT: External ear and ear canal without swelling; nose atraumatic; good dentition, tongue normal appearance, pharynx normal Neck: Supple, no LAD Cardio: RRR, no M/G/R, S1 and S2 normal Resp: No respiratory distress, Lungs CTA in all lobes bilaterally, no wheezes, rales, or rhonchi Abdomen: Soft, symmetric, nontender; No masses or hepatosplenomegaly; Bowel sounds normoactive MSK: Slight tenderness to palpation L lateral hip, slightly shortened; L elbow with excoriated areas; pulses palpable and equal; no edema. Neuro: Awake, alert; Sensation intact bilaterally; CN grossly intact Psych: Appropriate mood and affect; good judgement and insight. Results & Data Results & Data Vital Signs (Past 12 Hours) Vital Signs Temp Pulse Resp BP Pulse Ox 05/04/25 20:00 36.5 C 94 H 18 134/83 98 Laboratory Results 05/04/25 05/04/25 23:23 23:22 WBC 13.19 H RBC 4.86 Hgb 13.1 Hct 41.7 MCV 85.8 MCH 27.0 MCHC 31.4 L RDW Std Deviation 44.5 RDW Coeff of Christen 14.3 Plt Count 340 MPV 10.3 Immature Gran % (Auto) 0.5 Neut % (Auto) 84.7 Lymph % (Auto) 8.1 [place] % (Auto) 5.5 Eos % (Auto) 0.8 Baso % (Auto) 0.4 Neut # (Auto) 11.19 H Lymph # (Auto) 1.07 L [place] # (Auto) 0.72 H Eos # (Auto) 0.10 Baso # (Auto) 0.05 Immature Gran # (Auto) 0.06 PT 10.5 INR 1.0 Sodium 141 Potassium 3.4 L Chloride 106 Carbon Dioxide 26 Anion Gap 9 BUN 21 Creatinine 0.87 Est Cr Clr Drug Dosing Not Reportable eGFR 69.44 BUN/Creatinine Ratio 24.1 H Glucose 117 H Calcium 9.8 Total Bilirubin 0.3 AST 25 ALT 23 Alkaline Phosphatase 47 Total Protein 6.9 Albumin 4.0 Globulin 2.9 Albumin/Globulin Ratio 1.4 Urine Color Yellow Urine Appearance Clear Urine pH 6.5 Ur Specific [place] 1.014 Urine Protein Negative Urine Glucose (UA) Negative Urine Ketones Negative Urine Blood Negative Urine Nitrite Negative Urine Bilirubin Negative Urine Urobilinogen Negative Ur Leukocyte Esterase Negative Urine Comment Diagnostic Findings Chest X-Ray 05/04/25 00:00 Exam(s): XR CXR 1 VIEW EXAM: XR Chest, 1 View CLINICAL HISTORY: Reason for exam: LEFT HIP FX. TECHNIQUE: Frontal view of the chest. COMPARISON: 11/09/2023 FINDINGS: Lungs: No consolidation. No overt edema. Pleural space: No pleural effusion. No pneumothorax. Heart: Unremarkable. No cardiomegaly. IMPRESSION: No acute cardiopulmonary abnormality. Electronically signed by: Jesu Rankin MD 05/04/25 23:19 PM Femur X-Ray 05/04/25 20:16 Exam(s): XR LEFT FEMUR, 2 views EXAM: XR Left Femur, 2 Views CLINICAL HISTORY: Reason for exam: fall, left hip and leg pain. TECHNIQUE: Frontal and lateral views of the left femur. COMPARISON: No relevant prior studies available. FINDINGS: Bones/joints: Subcapital femoral neck fracture on the left. Degenerative changes in the medial compartment of the knee. Soft tissues: Unremarkable. IMPRESSION: Subcapital femoral neck fracture on the left. Electronically signed by: Jesu Rankin MD 05/04/25 23:18 PM Pelvis X-Ray 05/04/25 20:16 Exam(s): XR PELVIS, 1-2 views EXAM: XR Pelvis, 1 or 2 Views CLINICAL HISTORY: Reason for exam: fall, left hip pain. TECHNIQUE: Frontal view of the pelvis. COMPARISON: No relevant prior studies available. FINDINGS: Bones/joints: Subcapital femoral neck fracture on the left. Osteopenia which somewhat limits evaluation. Degenerative changes in the lumbar spine. Other findings: Calcified fibroid in the pelvis. IMPRESSION: Subcapital femoral neck fracture on the left. Electronically signed by: Jesu Rankin MD 05/04/25 23:19 PM Code Status & VTE Plan Code Status Conditional Only wants compressions, understands that without additional interventions there is high chance of being unsuccessful in resuscitation efforts but persists that she does not want more interventions. Supervising Physician Co-Signing Physician Notes Patient seen and examined, chart reviewed, case discussed with MAE Adam I agree with the assessment and plan as I can above. Patient with subcapital femoral neck fracture on the left following a fall in her yard Pain controlled. Neurovascularly intact + S1, S2, regular, no murmur/rub/gallop Lungs CTA Abdomen soft, nontender, nondistended extremities warm, well-perfused Labs images reviewed Assessment/plansubcapital femoral neck fracture on the left following a ground- level fall at home. Neurovascularly intact. Pain control N.p.o. after midnight Orthopedic surgery consultation appreciated. Plan for surgical repair in the morning Remainder as above PG Care Time/CCT Total # of Minutes Spent Total Time Spent with Patient: Total time spent is greater than 50% in coordination of care (as documented) at patient's floor/unit and/or counseling patient: Coding Level of Care Code 20744 INT INP/OBS CARE MIN Diagnoses Subcapital fracture of left femur S72.012A Hypokalemia E87.6
[2025-05-04] MEDS ORDERED: MoRPHine SULFATE 2 MG/ML CARP IV PRN (22:09)
[2025-05-04] MEDS ORDERED: MoRPHine SULFATE 4 MG/ML 1 ML CARP\\VIAL IV PRN (22:09)
--- NOTE | 2025-05-04 23:18 | XRay Report ---
Exam(s): XR LEFT FEMUR, 2 views EXAM: XR Left Femur, 2 Views CLINICAL HISTORY: Reason for exam: fall, left hip and leg pain. TECHNIQUE: Frontal and lateral views of the left femur. COMPARISON: No relevant prior studies available. FINDINGS: Bones/joints: Subcapital femoral neck fracture on the left. Degenerative changes in the medial compartment of the knee. Soft tissues: Unremarkable. IMPRESSION: Subcapital femoral neck fracture on the left. Electronically signed by: Jesu Rankin MD 05/04/25 23:18 PM
--- NOTE | 2025-05-04 23:19 | XRay Report ---
Exam(s): XR PELVIS, 1-2 views EXAM: XR Pelvis, 1 or 2 Views CLINICAL HISTORY: Reason for exam: fall, left hip pain. TECHNIQUE: Frontal view of the pelvis. COMPARISON: No relevant prior studies available. FINDINGS: Bones/joints: Subcapital femoral neck fracture on the left. Osteopenia which somewhat limits evaluation. Degenerative changes in the lumbar spine. Other findings: Calcified fibroid in the pelvis. IMPRESSION: Subcapital femoral neck fracture on the left. Electronically signed by: Jesu Rankin MD 05/04/25 23:19 PM
--- NOTE | 2025-05-04 23:20 | XRay Report ---
Exam(s): XR CXR 1 VIEW EXAM: XR Chest, 1 View CLINICAL HISTORY: Reason for exam: LEFT HIP FX. TECHNIQUE: Frontal view of the chest. COMPARISON: 11/09/2023 FINDINGS: Lungs: No consolidation. No overt edema. Pleural space: No pleural effusion. No pneumothorax. Heart: Unremarkable. No cardiomegaly. IMPRESSION: No acute cardiopulmonary abnormality. Electronically signed by: Jesu Rankin MD 05/04/25 23:19 PM
[2025-05-04 23:34] LABS: Appearance Urine Clear (Clear); Glucose Urine UA Negative (Negative)
[2025-05-04] MEDS: ACETAMINOPHEN 325 MG TAB PO PRN (23:37)
[2025-05-04 23:48] LABS: Hematocrit (blood only) 41.7 % (37.0-47.0); Hemoglobin 13.1 g/dl (12.0-16.0); Immature Granulocytes # (auto) 0.06 K/uL (0.01-0.20); Immature Granulocytes % (auto) 0.5 %; Mean Corpuscular Hemoglobin 27.0 pg (25.0-34.0); Mean Corpuscular Volume 85.8 fL (80.0-100.0); Platelet Count 340 K/uL (130-400); RDW Standard Deviation 44.5 fL (36.4-46.3); Red Blood Count 4.86 M/uL (4.20-5.40); White Blood Count 13.19 K/ul (4.8-10.8)
[2025-05-05 00:05] LABS: Alanine Aminotransferase 23 U/L (7-52); Albumin Globulin Ratio 1.4 (0.9-2); Alkaline Phosphatase 47 U/L (34-104); Anion Gap 9 (3-11); Bilirubin,Total 0.3 mg/dl (0.2-1.0); Blood Urea Nitrogen 21 mg/dl (6-23); Calcium 9.8 mg/dl (8.6-10.3); Carbon Dioxide 26 mmol/L (21-32); Chloride 106 mmol/L (98-107); Globulin 2.9 gm/dl (2.5-4.0); Glucose 117 mg/dl (70-99(Fasting)); Potassium 3.4 mmol/L (3.5-5.1); Sodium 141 mmol/L (136-145); Total Protein 6.9 gm/dl (6.0-8.3)
[2025-05-05] MEDS ORDERED: ONDANSETRON INJ 2 MG/ML 2 ML VIAL IV PRN ×2 (00:24→16:00)
[2025-05-05 00:25] LABS: INR 1.0 (0.9-1.1); Prothrombin Time 10.5 Seconds (9.0-12.0)
[2025-05-05] MEDS: MELATONIN 3 MG TAB PO PRN (00:53)
[2025-05-05] MEDS: diphenhydrAMINE 50 MG/ML VIAL IV STA (01:31)
[2025-05-05] MEDS: diphenhydrAMINE Capsule 25 MG CAP PO ONE ×2 (01:40→23:13)
[2025-05-05 02:09] LABS: Magnesium 1.5 mg/dl (1.7-2.4)
[2025-05-05] MEDS: POTASSIUM CHLORIDE / WTR 10 MEQ/100 ML PLCT IV ONE (02:10)
--- NOTE | 2025-05-05 07:08 | Orthopedic Consultation ---
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 After orthopedic consultation discussing the patients treatment options of conservative versus surgical intervention, the patient agreed to a planned ORIF. Since the patient was ambulatory prior to the injury and to avoid the risks of bed sores, pulmonary complications, and to give the patient the best chance for ambulation, I recommended surgery. The patient understands the risks of surgery, which inc lude but are not limited to: bleeding, infection, re-operation, damage to nerves and arteries, continued pain, failure of the hardware, fracture, dislocation, DVT, KS, stroke, and . In addition, the patient is aware of the 20-30% morbidity associated with hip fracture for up to 1 year following a hip fracture. The patient understands all these instructions and explanations; all their questions have been satisfactorily addressed. The patient has elected to proceed with surgery and the informed consent was signed.Continue pain control. NPO with fluids after midnight since midnight. The patient was admitted to the Hospitalist service. The patient has been placed on the add-on list for the OR and plan to proceed with surgery if medically cleared, and OR available. Present on Admission?: Yes History of Present Illness Reason for Consultation: Left hip frcture Requesting Physician: Susan Robert MD Attending Physician: Cally Ramirez MD History of Present Illness 75 year old woman, fell while mowing her grass, injuring her left hip. After the injury she used a walker and was able to ambulate without placing weight on her left. She came to the ED where x-rays were obtained, she was admitted to the Hospitalist service and I was consulted to further evaluate and treat her left hip fracture. She denies any other injuries. Allergies Allergy/AdvReac Type Severity Reaction Status Date / Time Sulfa (Sulfonamide Allergy Unknown HIVES Verified 05/04/25 22:27 Antibiotics) Home Medications Medication Instructions Recorded Confirmed Type cholecalciferol (vitamin D3) 125 5,000 units PO QPM 05/16/19 05/04/25 History mcg (5,000 unit) capsule cyanocobalamin (vitamin B-12) 100 100 mcg PO QPM 05/16/19 05/04/25 History mcg tablet omega 3-bgj-rpn-fish oil 60 mg-90 1 cap PO QPM 05/20/19 05/04/25 History mg-500 mg capsule multivitamin 1 tab PO QPM 01/20/22 05/04/25 History vitamins A,C,G-veii-xvrdos 4,296 2 cap PO QPM 01/20/22 05/04/25 History mcg-226 mg-90 mg capsule (PreserVision AREDS) metformin 500 mg tablet 500 mg PO TIDWMEAL #270 tabs 12/02/24 05/04/25 Rx fenofibrate nanocrystallized 145 145 mg PO QPM #90 tabs 12/19/24 05/04/25 Rx mg tablet esomeprazole magnesium 40 mg 40 mg PO DAILY #90 caps 12/24/24 05/04/25 Rx capsule,delayed release bupropion HCl 75 mg tablet 75 mg PO DAILY #90 tabs 01/02/25 05/04/25 Rx amlodipine 5 mg tablet 5 mg PO QPM #90 tabs 01/13/25 05/04/25 Rx triamterene 37.5 1 tab PO QPM #90 tabs 02/03/25 05/04/25 Rx mg-hydrochlorothiazide 25 mg tablet loratadine 10 mg tablet 10 mg PO QPM 05/04/25 05/04/25 History melatonin 3 mg tablet 9 mg PO HS 05/04/25 05/04/25 History Patient History Medical History Tinnitus, bilateral Sensorineural hearing loss (SNHL) of both ears Decreased hearing History of pelvic fracture Acquired deviated nasal septum Actinic keratosis Allergic rhinitis due to dust Arthralgia of multiple sites Atypical nevi Hip bursitis, left Hip pain, bilateral Pain in both knees Seborrheic keratosis, inflamed Sleep disturbance Xerosis of skin Insomnia Multiple fractures of ribs of right side (12/31/22) Frequency of urination Sleep apnea Serum calcium elevated Surgical History History of colonoscopy No history of previous surgery Family History Mother Breast cancer Father Cancer Grandfather (Maternal) Myocardial infarction Daughter Breast cancer Brother Prostate cancer Other Leiomyoma Denies family history of Ovarian cancer Colorectal cancer Social History Smoking Status: Former smoker Tobacco Type: Cigarettes Age Started Using Tobacco: 21; Age Quit Using Tobacco: 35; packs per day: 1.5; Second Hand Exposure: No; Do You Dip or Chew Tobacco: No; Hx Alcohol Use: Yes Alcohol type: wine Hx Substance Use: No Preferred Language: Bolivian Communication Ability: Effective Field Reviewer Required: No Beliefs That Will Affect Care: None marital status: Current Living Situation: Spouse current occupational status: employed current occupation: [employer] Feels Safe at Home: Yes Childhood Exposure to Second-Hand Smoke: No Dental Care, Regularly: Yes Physical Activity Frequency: 1-2 Times per Week Seatbelt Use: always Sunscreen Use: No Assistive Devices: Walker Physical Exam Physical Exam: LLE: Sensation to light touch intact distally. Motor to gastroc soleus, EHL, Tib ant intact. Able to slowly flex and extend hip/knee. 2+ DP pulse. Calf soft & non-tender. + pain with log roll hip Results & Data Vital Signs (Past 12 Hours) Vital Signs Temp Pulse Pulse Resp BP BP Pulse Ox 05/05/25 00:05 36.5 C 88 18 127/76 95 05/04/25 23:50 82 18 136/77 98 05/04/25 23:00 84 18 114/77 97 05/04/25 21:53 88 18 125/83 98 05/04/25 20:00 36.5 C 94 H 18 134/83 98 O2 Del Method 05/05/25 00:05 Room Air 05/04/25 23:50 Room Air 05/04/25 23:00 Room Air 05/04/25 21:53 Room Air 05/04/25 20:00 Laboratory Results Laboratory Results WBC 13.19 K/ul (4.8-10.8) H 05/04/25 23:23 RBC 4.86 M/uL (4.20-5.40) 05/04/25 23:23 Hgb 13.1 g/dl (12.0-16.0) 05/04/25 23:23 Hct 41.7 % (37.0-47.0) 05/04/25 23:23 MCV 85.8 fL (80.0-100.0) 05/04/25 23:23 MCH 27.0 pg (25.0-34.0) 05/04/25 23:23 MCHC 31.4 g/dL (32.0-36.0) L 05/04/25 23:23 RDW Std Deviation 44.5 fL (36.4-46.3) 05/04/25 23: RDW Coeff of Christen 14.3 % (11.5-14.5) 05/04/25 23:23 Plt Count 340 K/uL (130-400) 05/04/25 23:23 MPV 10.3 fL (9.4-12.4) 05/04/25 23:23 Immature Gran % (Auto) 0.5 % 05/04/25 23:23 Neut % (Auto) 84.7 % 05/04/25 23:23 Lymph % (Auto) 8.1 % 05/04/25 23:23 [place] % (Auto) 5.5 % 05/04/25 23:23 Eos % (Auto) 0.8 % 05/04/25 23:23 Baso % (Auto) 0.4 % 05/04/25 23:23 Neut # (Auto) 11.19 K/uL (1.40-6.50) H 05/04/25 23:23 Lymph # (Auto) 1.07 K/uL (1.20-3.40) L 05/04/25 23:23 [place] # (Auto) 0.72 K/uL (0.11-0.59) H 05/04/25 23:23 Eos # (Auto) 0.10 K/uL (0.00-0.50) 05/04/25 23:23 Baso # (Auto) 0.05 K/uL (0.00-0.20) 05/04/25 23:23 Immature Gran # (Auto) 0.06 K/uL (0.01-0.20) 05/04/25 23:23 PT 10.5 Seconds (9.0-12.0) 05/04/25 23:23 INR 1.0 (0.9-1.1) 05/04/25 23:23 Sodium 141 mmol/L (136-145) 05/04/25 23:23 Potassium 3.4 mmol/L (3.5-5.1) L 05/04/25 23:23 Chloride 106 mmol/L (98-107) 05/04/25 23:23 Carbon Dioxide 26 mmol/L (21-32) 05/04/25 23:23 Anion Gap 9 (3-11) 05/04/25 23:23 BUN 21 mg/dl (6-23) 05/04/25 23:23 Creatinine 0.87 mg/dl (0.6-1.2) 05/04/25 23:23 Est Cr Clr Drug Dosing Not Reportable 05/04/25 23:23 eGFR 69.44 05/04/25 23:23 BUN/Creatinine Ratio 24.1 (10-20) H 05/04/25 23:23 Glucose 117 mg/dl (70-99(Fasting)) H 05/04/25 23:23 Calcium 9.8 mg/dl (8.6-10.3) 05/04/25 23:23 Magnesium 1.5 mg/dl (1.7-2.4) L 05/04/25 23:23 Total Bilirubin 0.3 mg/dl (0.2-1.0) 05/04/25 23:23 AST 25 U/L (13-39) 05/04/25 23:23 ALT 23 U/L (7-52) 05/04/25 23:23 Alkaline Phosphatase 47 U/L (34-104) 05/04/25 23:23 Total Protein 6.9 gm/dl (6.0-8.3) 05/04/25 23:23 Albumin 4.0 gm/dl (3.4-5.0) 05/04/25 23:23 Globulin 2.9 gm/dl (2.5-4.0) 05/04/25 23:23 Albumin/Globulin Ratio 1.4 (0.9-2) 05/04/25 23:23 Urine Color Yellow 05/04/25 23:22 Urine Appearance Clear (Clear) 05/04/25 23:22 Urine pH 6.5 (4.5-7.5) 05/04/25 23:22 Ur Specific [place] 1.014 (1.000-1.030) 05/04/25 23:22 Urine Protein Negative (Negative) 05/04/25 23:22 Urine Glucose (UA) Negative (Negative) 05/04/25 23:22 Urine Ketones Negative (Negative) 05/04/25 23:22 Urine Blood Negative (Negative) 05/04/25 23:22 Urine Nitrite Negative (Negative) 05/04/25 23:22 Urine Bilirubin Negative (Negative) 05/04/25 23:22 Urine Urobilinogen Negative (Negative) 05/04/25 23:22 Ur Leukocyte Esterase Negative (Negative) 05/04/25 23:22 Urine Comment 05/04/25 23:22 Impressions Chest X-Ray 05/04/25 00:00 Exam(s): XR CXR 1 VIEW EXAM: XR Chest, 1 View CLINICAL HISTORY: Reason for exam: LEFT HIP FX. TECHNIQUE: Frontal view of the chest. COMPARISON: 11/09/2023 FINDINGS: Lungs: No consolidation. No overt edema. Pleural space: No pleural effusion. No pneumothorax. Heart: Unremarkable. No cardiomegaly. IMPRESSION: No acute cardiopulmonary abnormality. Electronically signed by: Jesu Rankin MD 05/04/25 23:19 PM Femur X-Ray 05/04/25 20:16 Exam(s): XR LEFT FEMUR, 2 views EXAM: XR Left Femur, 2 Views CLINICAL HISTORY: Reason for exam: fall, left hip and leg pain. TECHNIQUE: Frontal and lateral views of the left femur. COMPARISON: No relevant prior studies available. FINDINGS: Bones/joints: Subcapital femoral neck fracture on the left. Degenerative changes in the medial compartment of the knee. Soft tissues: Unremarkable. IMPRESSION: Subcapital femoral neck fracture on the left. Electronically signed by: Jesu Rankin MD 05/04/25 23:18 PM Pelvis X-Ray 05/04/25 20:16 Exam(s): XR PELVIS, 1-2 views EXAM: XR Pelvis, 1 or 2 Views CLINICAL HISTORY: Reason for exam: fall, left hip pain. TECHNIQUE: Frontal view of the pelvis. COMPARISON: No relevant prior studies available. FINDINGS: Bones/joints: Subcapital femoral neck fracture on the left. Osteopenia which somewhat limits evaluation. Degenerative changes in the lumbar spine. Other findings: Calcified fibroid in the pelvis. IMPRESSION: Subcapital femoral neck fracture on the left. Electronically signed by: Jesu Rankin MD 05/04/25 23:19 PM
--- NOTE | 2025-05-05 08:28 | Anesthesiology Consultation ---
Date of Service May 05, 2025 Assessment & Plan Chart Review Chart Review: Acceptable Risk for Surgery and Patient NOT seen in Pre Admission Testing History Surgery Operation Date: 05/05/25 10:15 Proposed Procedures p Left Hip Open Reduction Internal Fixation - Jose Cruz Robert MD Height/Weight Height: 5 ft 8 in Weight: 77.5 kg Allergies Allergy/AdvReac Type Severity Reaction Status Date / Time Sulfa (Sulfonamide Allergy Unknown HIVES Verified 05/04/25 22:27 Antibiotics) Medications Home Medications Medication Instructions Recorded Confirmed Last Taken cholecalciferol (vitamin D3) 125 5,000 units PO QPM 05/16/19 05/04/25 02/28/22 mcg (5,000 unit) capsule cyanocobalamin (vitamin B-12) 100 100 mcg PO QPM 05/16/19 05/04/25 02/28/22 mcg tablet omega 3-rfv-kwz-fish oil 60 mg-90 1 cap PO QPM 05/20/19 05/04/25 02/28/22 mg-500 mg capsule multivitamin 1 tab PO QPM 01/20/22 05/04/25 02/28/22 vitamins A,C,Q-ydkl-fourfb 4,296 2 cap PO QPM 01/20/22 05/04/25 02/28/22 mcg-226 mg-90 mg capsule (PreserVision AREDS) metformin 500 mg tablet 500 mg PO TIDWMEAL #270 tabs 12/02/24 05/04/25 Unknown fenofibrate nanocrystallized 145 145 mg PO QPM #90 tabs 12/19/24 05/04/25 Unknown mg tablet esomeprazole magnesium 40 mg 40 mg PO DAILY #90 caps 12/24/24 05/04/25 Unknown capsule,delayed release bupropion HCl 75 mg tablet 75 mg PO DAILY #90 tabs 01/02/25 05/04/25 Unknown amlodipine 5 mg tablet 5 mg PO QPM #90 tabs 01/13/25 05/04/25 Unknown triamterene 37.5 1 tab PO QPM #90 tabs 02/03/25 05/04/25 Unknown mg-hydrochlorothiazide 25 mg tablet loratadine 10 mg tablet 10 mg PO QPM 05/04/25 05/04/25 Unknown melatonin 3 mg tablet 9 mg PO HS 05/04/25 05/04/25 Unknown Active Medications Generic Name Dose Route Start Last Admin Trade Name Alan PRN Reason Stop Dose Admin Acetaminophen 650 mg 05/04/25 22:09 05/05/25 07:52 Acetaminophen 325 Mg Tab PO 06/03/25 22:08 650 mg Q6H PRN Administration Pain & Pre PT Bupropion HCl 75 mg 05/05/25 09:00 05/05/25 07:52 Bupropion Hcl 75 Mg Tablet PO 06/04/25 08:59 75 mg DAILY JESUS MANUEL Administration Pantoprazole Sodium 40 mg 05/05/25 09:00 05/05/25 07:52 Pantoprazole 40 Mg Tab PO 06/04/25 08:59 40 mg DAILY JESUS MANUEL Administration Past Medical History Medical History Tinnitus, bilateral Sensorineural hearing loss (SNHL) of both ears Decreased hearing History of pelvic fracture Acquired deviated nasal septum Actinic keratosis Allergic rhinitis due to dust Arthralgia of multiple sites Atypical nevi Hip bursitis, left Hip pain, bilateral Pain in both knees Seborrheic keratosis, inflamed Sleep disturbance Xerosis of skin Insomnia Multiple fractures of ribs of right side (12/31/22) Frequency of urination Sleep apnea Serum calcium elevated Past Family History Family History Mother Breast cancer Father Cancer Grandfather (Maternal) Myocardial infarction Daughter Breast cancer Brother Prostate cancer Other Leiomyoma Denies family history of Ovarian cancer Colorectal cancer Past Surgical History Surgical History History of colonoscopy No history of previous surgery Social History Smoking Status: Former smoker Do You Dip or Chew Tobacco: No Hx Alcohol Use: Yes Alcohol type: wine alcohol intake frequency: holidays/special occasions only Hx Substance Use: No substance use type: does not use Physical Exam Vital Signs Last Vital Signs Temp 36.4 C L 05/05/25 07:13 Pulse 80 05/05/25 07:13 Resp 18 05/05/25 07:13 BP 106/67 05/05/25 07:13 Pulse Ox 93 05/05/25 07:13 O2 Del Method Room Air 05/05/25 07:13 Testing Laboratory Results 05/04/25 23:23 05/04/25 23:23 PT 10.5 Seconds (9.0-12.0) 05/04/25 23:23 INR 1.0 (0.9-1.1) 05/04/25 23:23 Urine Color Yellow 05/04/25 23:22 Urine Appearance Clear (Clear) 05/04/25 23:22 Urine pH 6.5 (4.5-7.5) 05/04/25 23:22 Ur Specific [place] 1.014 (1.000-1.030) 05/04/25 23:22 Urine Protein Negative (Negative) 05/04/25 23:22 Urine Glucose (UA) Negative (Negative) 05/04/25 23:22 Urine Ketones Negative (Negative) 05/04/25 23:22 Urine Nitrite Negative (Negative) 05/04/25 23:22 Ur Leukocyte Esterase Negative (Negative) 05/04/25 23:22
[2025-05-05 10:33] LABS: Hematocrit (blood only) 37.7 % (37.0-47.0); Hemoglobin 12.3 g/dl (12.0-16.0); Mean Corpuscular Hemoglobin 27.0 pg (25.0-34.0); Mean Corpuscular Volume 82.9 fL (80.0-100.0); Platelet Count 322 K/uL (130-400); RDW Standard Deviation 42.7 fL (36.4-46.3); Red Blood Count 4.55 M/uL (4.20-5.40); White Blood Count 7.88 K/ul (4.8-10.8)
[2025-05-05] MEDS: SODIUM CHLORIDE 0.9% 1,000 ML IV SCH (10:35)
[2025-05-05 10:51] LABS: Anion Gap 6.0 (3-11); Blood Urea Nitrogen 17.0 mg/dl (6-23); Calcium 9.4 mg/dl (8.6-10.3); Carbon Dioxide 27.0 mmol/L (21-32); Chloride 107.0 mmol/L (98-107); Creatinine Clr Calc Pharmacy 76.0 ml/min; Glucose 121.0 mg/dl (70-99(Fasting)); Potassium 3.3 mmol/L (3.5-5.1); Sodium 140.0 mmol/L (136-145)
--- NOTE | 2025-05-05 11:43 | Hospitalist Progress Note ---
"Date of Service May 05, 2025 Assessment & Plan (1) Subcapital fracture of left femur: (2) Hypokalemia: Plan 75-year-old woman with PMHx of prediabetes, HTN, thyroid nodules, laryngeal pharyngeal reflux, HLD, GERD, and vitamin D deficiency. She presented to the ED after a fall onto her left hip while mowing the lawn on the day of arrival. Not on blood thinners. Did not hit head. Imaging on admission revealed acute left subcapital femoral neck fracture, also in setting of mild hypokalemia and mild leukocytosis. UA negative for infection. CXR with no acute findings. #Age-related osteoporotic left femur fracture | Fall - patient presented after mechanical fall while mowing the lawn. No precipitating symptoms. Femur/pelvis x-rays on admission revealed left subcapital femoral neck fracture. - Mild leukocytosis now resolved, suspect this was secondary to stress reaction from acute fracture - Ortho consulted - plans for ORIF today 05/05 - Continue n.p.o. status while pending surgical intervention, can start a regular diet postoperatively - Continue fall precautions - Acetaminophen prn fever/pain, morphine prn severe pain - Continue IVF LR @ 100 mL/hr while NPO #Hypokalemia | Hypomagnesemia - K 3.4 on admission, repleted with 10 mEq KCl IV, K 3.3 today 05/05. Ordered KCl 10 mEq IV x 2, however patient could not tolerate the second bag due to the burning sensation despite having this run with NSS and at a decreased rate. Will replete with 20 mEq PO postoperatively when NPO status is lifted - Mag 1.5 on admission, 1.6 today 05/05 - will replete with 1 g IV mag x 1 - EKG unremarkable - Monitor BMP, mag with AM labs #Prediabetes- Glucose on admission 117; Metformin at baseline; SSI deferred at admission, BSG ACHS once eating #HTN- Triamterene/Chlorothiazide, amlodipine - continue #Hypercholesterolemia- Fenofibrate - continue #GERD- Esomeprazole - continue Dispo: Anticipate surgical intervention today 05/05, then will need PT/OT evaluations to help determine disposition VTE Prophylaxis: HOLD at admission, ? surgical intervention -- add once medically appropriate Held HCTZ Ordered IV and PO KCl and IV mag Admission and Anticipated Discharge Date Admission Date: May 04, 2025 Supervising Physician Co-Signing Physician Notes PA Supervision Note: I did not personally see or examine the patient today, but I verified all patrick points of FRANKIE Peralta's assessment and plan with the following exceptions/additions: None Subjective Patient seen and evaluated at bedside. She reports a mild headache. She drinks caffeine daily; discussed her headache is likely a caffeine-withdrawal headache due to being NPO with pending surgery. She reports her pain is well-controlled at this time. We discussed her potassium repletion for mild hypokalemia; she mentioned her IV K burned yesterday, informed her we can run it with IV fluids to help prevent the burning sensation. Awaiting finalized plan from ortho depending on OR availability but seems like surgery will occur at some point today. No additional complaints or concerns at this time. Physical Exam Physical Exam: General: No acute distress, nondiaphoretic, well-developed, well-nourished. Skin: Warm, dry. No rashes or peripheral edema noted. Cardiac: Regular rate and rhythm without murmurs gallops or rubs. Pulm: Clear to auscultation bilaterally without wheezes, rales or rhonchi. Normal respiratory effort. 93% on room air. Abdominal: Soft, nontender, nondistended. Bowel sounds present. Extremities: Tender to L lateral hip palpation. Motor and sensory function intact. Neurovascularly intact. Neuro: A&O x3. No focal neurological deficits. Results & Data Results & Data Vital Signs (Past 12 Hours) Vital Signs Temp Pulse Pulse Resp BP BP Pulse Ox 05/05/25 07:13 97.5 F L 80 18 106/67 93 05/05/25 00:05 97.7 F 88 18 127/76 95 05/04/25 23:50 82 18 136/77 98 O2 Del Method 05/05/25 07:13 Room Air 05/05/25 00:05 Room Air 05/04/25 23:50 Room Air Laboratory Results Reviewed CBC Reviewed BMP PG Care Time/CCT Total # of Minutes Spent Total Time Spent with Patient: Total time spent is greater than 50% in coordination of care (as documented) at patient's floor/unit and/or counseling patient: Coding Level of Care Code 88122 SUB INP/OBS CARE 3/50MIN Diagnoses Subcapital fracture of left femur S72.012A Hypokalemia E87.6"
[2025-05-05] MEDS: POTASSIUM CHLORIDE / WTR 10 MEQ/100 ML PLCT IV SCH (11:57)
--- NOTE | 2025-05-05 12:43 | Electrocardiogram Report ---
Test Reason : Blood Pressure : */* mmHG Vent. Rate : 79 BPM Atrial Rate : 79 BPM P-R Int : 176 ms QRS Dur : 110 ms QT Int : 424 ms P-R-T Axes : 53 37 41 degrees QTcB Int : 486 ms Normal sinus rhythm Normal ECG When compared with ECG of 09-Nov-2023 14:09, No significant change was found Confirmed by Edy Chu ([id number]) on 05/05/2025 12:42:45 PM Referred By: REFERRED SELF Confirmed By: Edy Chu
[2025-05-05 12:54] LABS: Magnesium 1.6 mg/dl (1.7-2.4)
[2025-05-05] MEDS: MAGNESIUM SULFATE / D5W 1 GM/100 ML BAG IV ONE (14:45)
--- NOTE | 2025-05-05 15:10 | Electrocardiogram Report ---
Test Reason : Blood Pressure : */* mmHG Vent. Rate : 91 BPM Atrial Rate : 91 BPM P-R Int : 174 ms QRS Dur : 98 ms QT Int : 392 ms P-R-T Axes : 104 -19 -40 degrees QTcB Int : 482 ms Normal sinus rhythm Low voltage QRS Possible Inferior infarct , age undetermined Abnormal ECG When compared with ECG of 05-May-2025 03:37, Questionable change in QRS axis Nonspecific T wave abnormality now evident in Inferior leads Confirmed by Edy Chu ([id number]) on 05/05/2025 3:10:06 PM Referred By: REFERRED SELF Confirmed By: Edy Chu
[2025-05-05] MEDS ORDERED: MIDAZOLAM HCL 1 MG/ML 2ML VIAL ONE (15:56)
[2025-05-05] MEDS ORDERED: PROPOFOL IV EMULSION 10 MG/ML 20 ML VIAL IV ONE (15:56)
[2025-05-05] MEDS ORDERED: DEXAMETHASONE SOD INJ 4 MG/ML VIAL ONE (15:56)
[2025-05-05] MEDS ORDERED: GLYCOPYRROLATE 0.2 MG/ML VIAL ONE (15:56)
[2025-05-05] MEDS ORDERED: ONDANSETRON INJ 2 MG/ML 2 ML VIAL ONE (15:56)
[2025-05-05] MEDS ORDERED: LIDOCAINE 2% 2 ML VIAL/AMP(20MG/ML) INFIL ONE (15:56)
[2025-05-05] MEDS ORDERED: HYDROmorphone INJ 1 MG/ML SYRINGE IV PRN (16:00)
[2025-05-05] MEDS ORDERED: PROMETHAZINE HCL 6.25 MG in SODIUM CHLORIDE 0.9% 50 ML IV PRN (16:00)
[2025-05-05] MEDS ORDERED: ATROPINE SULFATE 0.1 MG/ML 10ML SYR IV PRN (16:00)
[2025-05-05] MEDS: TRANEXAMIC ACID / 0.7% NACL 1,000 MG/100 ML BAG IV ONE (16:25)
[2025-05-05] MEDS ORDERED: ROCURONIUM BROMIDE 10 MG/ML 5 ML VIAL IV ONE (16:25)
[2025-05-05] MEDS ORDERED: SUGAMMADEX SODIUM 200 MG/2 ML VIAL IV ONE (17:43)
[2025-05-05] MEDS: BUPIVACAINE/EPINEPHRINE 0.5% MPF 1:200,000 30 ML VIAL ONE (17:49)
[2025-05-05] MEDS: LIDOCAINE 1% LOCAL 20 ML VIAL ONE (17:49)
[2025-05-05] MEDS: TRANEXAMIC ACID / 0.7% NACL 1000MG/100ML BAG IV ONE (17:51)
--- NOTE | 2025-05-05 17:59 | Post Operative Brief Note ---
Immediate Post Op Note Date of Surgery May 05, 2025 Pre & Post Diagnosis Operation Date: 05/05/25 10:15 Pre-Op Diagnosis: Subcapital fracture of left femur Post-Op Diagnosis: Subcapital fracture of left femur I identified the patient and participated in the time-out.: Yes Procedure Operation Date: 05/05/25 10:15 Actual Procedures p Left Hip Open Reduction with Internal Fixation(Left) - Jose Cruz Robert MD Surgeon Jose Cruz Robert MD Medical Records Auditor Gisella Nava PA-C (No fellow avail) Estimated Blood Loss 50 Findings Consistent with Post-Op Diagnosis Fluids 1000 cc Anesthesia Type General Complications none
--- NOTE | 2025-05-05 17:59 | Operative Report ---
Post Operative Report Pre & Post Diagnosis Operation Date: 05/05/25 10:15 Pre-Op Diagnosis: Subcapital fracture of left hip Post-Op Diagnosis: Subcapital fracture of left hip I identified the patient and participated in the time-out.: Yes Procedure Operation Date: 05/05/25 10:15 Actual Procedures p Left Hip Open Reduction with Internal Fixation(Left) - Jose Cruz Robert MD Surgeon Jose Cruz Robert MD Hydrography Teacher Gisella Nava PA-C (No fellow avail) Estimated Blood Loss 50 Findings See Below Valgus impacted left subcapital hip fracture Fluids 1000 cc Specimens n/a Anesthesia Type General Complications none Indications The patient is a 75 year old female who sustained a left hip fracture following a ground level fall. Their treatment options of conservative versus surgical intervention were discussed. Since the patient was an ambulatory prior to their injury and to avoid the risks of bed sores, pulmonary complications, and to give them the best chance for ambulation, I recommended surgery. The patient under stand the risks of surgery, which include but are not limited to: bleeding, infection, re-operation, damage to nerves and arteries, continued pain, failure of the hardware, mal-union, non-union, DVT, and . Due to their medical problems, the patient understand that the patient is a high-risk candidate for surgery. In addition, the patient is aware of the 20-30% morbidity associated with hip fracture for up to 1 year following a hip fracture. The patient understands all these instructions and explanations; all their questions have been satisfactorily addressed. The patient has elected to proceed with surgery and the informed consent was signed. Description of Procedure Gisella Nava PA-C is assisting with positioning, retraction, and closure due to fellow not available. IMPLANTS: 1) FNS Plate 1 hole (SYNTHES). 2) Mobile FNS 85 mm (SYNTHES) 3) Anti-rotation screw 85 mm (SYNTHES) 4) 5.0 Ti Locking screw 50 mm (SYNTHES) Procedure The patient was taken to the Operating Room and placed in the supine position on the fracture table after general anesthesia was administered. A multidisciplinary time-out was performed identifying my initials on the left lower limb as the correct and operative limb. Prior to the incision being made, 2 g intravenous Ancef was given. Fluoroscopy was brought in to ensure adequate x-rays images could be obtained. No reduction was necessary as the femoral neck fracture was valgus impacted and remained in its alignment with placement of the patient on the fracture table. Once this was confirmed with Fluro, the left lower extremity was prepped in the standard fashion. The trochanter was marked as was the planned incision. The incision was injected with a 50:50 mixture of 1% Lidocaine with epinephrine and 0.5% Marcaine plain for a total of 10 cc. The planned incision was carried down through the Tensor Fascia Doreen and Vastus Lateralis to expose the greater trochanter and the starting position. Using Fluro a starting guide wire was placed proximally to the lesser trochanter and centered along the femoral neck. This was measured and the cannulated drill was used in the standard fashion. The Mobile and plate were then inserted over the guide wire in the standard fashion. The aiming guide, the distal locking screw was prepped with the aiming guide using the appropriate drill in the standard fashion followed by placement of the locking screw.Then anti-rotation screw was prepped with the aiming guide using the appropriate drill in the standard fashion followed by placement of the anti- rotation screw. Final x-rays were obtained showing near anatomic alignment with fracture and hardware in good position, TAD less than 25 mm. The wounds were copiously irrigated. The Vastis Lateralis and Tensor Fascia Doreen were closed with 0 Vicryl. The deep fat was closed with a single 0 Vicryl. The subcutaneous tissue was closed with 3-0 Vicryl. The skin was closed with ZipLine and shield. The incision was covered with 4x4s, and Tegaderm. The patient was transferred to their hospital bed and taken to the PACU in stable condition. The sponge and needle counts were correct. Post-op Instructions: The patient was re-admitted to Hospitalist service. The patient will be WBAT with a walker. The patient will be seen by PT/OT. Their labs will be checked in the am. DVT prophylaxis will include 81 mg ASA BID for 6 weeks, Teds for 3 weeks, SCDs while in the hospital. I attest to the content of the Intraoperative Record and any orders documented therein. Any exceptions are noted below.
--- NOTE | 2025-05-05 18:14 | Operative Report ---
Post Operative Report Pre & Post Diagnosis Operation Date: 05/05/25 10:15 Pre-Op Diagnosis: Subcapital fracture of left femur Post-Op Diagnosis: Subcapital fracture of left femur I identified the patient and participated in the time-out.: Yes Procedure Operation Date: 05/05/25 10:15 Actual Procedures p Left Hip Open Reduction with Internal Fixation(Left) - Jose Cruz Robert MD Surgeon Jose Cruz Robert MD Creasing [employer] Cutting Press Feeder Gisella Nava PA-C (No fellow avail) Estimated Blood Loss 50 Findings Consistent with Post-Op Diagnosis Specimens None Anesthesia Type General Description of Procedure Patient was taken to the operating room and placed under general anesthesia. Time out was performed. She was given 2 g of IV Ancef and 1 g of IV TXA preoperatively. She was prepped and draped in routine sterile fashion. I was present during the entire case and assisted with positioning, tissue retraction, implantation of hardware, reduction of fracture, closure and dressings. Please see Dr. Robert's operative report for further details regarding today's procedure. Patient was awakened and transferred to the recovery room in stable condition. I attest to the content of the Intraoperative Record and any orders documented therein. Any exceptions are noted below.
--- NOTE | 2025-05-05 18:48 | Anesthesiology Progress Note ---
Date of Service May 05, 2025 Anesthesia Post Procedure Vital Signs Vital Signs: Temp Pulse Pulse Pulse Resp BP BP 05/05/25 18:46 36.7 C 82 16 118/80 05/05/25 18:30 36.7 C 81 14 122/77 05/05/25 18:20 82 16 126/72 05/05/25 18:12 36.5 C 88 15 122/83 05/05/25 15:30 37.1 C 87 18 125/81 05/05/25 14:06 36.6 C 91 H 18 132/84 05/05/25 07:13 36.4 C L 80 18 106/67 05/05/25 00:05 36.5 C 88 18 127/76 05/04/25 23:50 82 18 136/77 05/04/25 23:00 84 18 114/77 05/04/25 21:53 88 18 125/83 05/04/25 20:00 36.5 C 94 H 18 134/83 Pulse Ox O2 Del Method O2 Flow Rate 05/05/25 18:46 93 Room Air 05/05/25 18:30 93 Room Air 05/05/25 18:20 97 Oxymask 4 05/05/25 18:12 94 Oxymask 6 05/05/25 15:30 93 Room Air 05/05/25 14:06 94 Room Air 05/05/25 07:13 93 Room Air 05/05/25 00:05 95 Room Air 05/04/25 23:50 98 Room Air 05/04/25 23:00 97 Room Air 05/04/25 21:53 98 Room Air 05/04/25 20:00 98 Pain Intensity Left Hip: Pain Intensity: 3 Transfer of Care Handoff Completed per policy Notes Mental Status: alert / awake / arousable and participated in evaluation Patient Amnestic to Procedure: Yes Nausea / Vomiting: adequately controlled Pain: adequately controlled Airway Patency, RR, SpO2: stable & adequate BP & HR: stable & adequate Hydration State: stable & adequate Anesthetic Complications: no major complications apparent
[2025-05-05] MEDS: FENOFIBRATE NANOCRYSTALLIZED 145 MG TABLET PO SCH (20:52)
[2025-05-05] MEDS: CYANOCOBALAMIN (B-12) 100 MCG TABLET PO SCH (20:52)
[2025-05-05] MEDS: LORATADINE 10 MG TAB PO SCH (20:52)
[2025-05-05] MEDS: CHOLECALCIFEROL 125 MCG (5,000 UNITS) TAB PO SCH (20:53)
[2025-05-05] MEDS: POTASSIUM CHLORIDE CRTAB 20 MEQ TABCR PO ONE (20:53)
[2025-05-05] MEDS: MELATONIN 3 MG TAB PO SCH (20:53)
[2025-05-05] MEDS: ACETAMINOPHEN 500 MG TAB PO SCH (20:53)
[2025-05-05] MEDS ORDERED: CHOLECALCIFEROL 125 MCG (5,000 UNITS) TAB PO SCH (21:00)
[2025-05-05] MEDS ORDERED: TRIAMTERENE/HCTZ 37.5/25MG TAB PO SCH (21:00)
[2025-05-05] MEDS ORDERED: Nursing to Pharmacy Communication SCH (22:15)
[2025-05-05] MEDS: FLUTICASONE PROPIONATE NA SPR 16 GM BTL SCH (22:36)
[2025-05-06 07:21] LABS: Anion Gap 7.0 (3-11); Blood Urea Nitrogen 11.0 mg/dl (6-23); Calcium 8.6 mg/dl (8.6-10.3); Carbon Dioxide 24.0 mmol/L (21-32); Chloride 109.0 mmol/L (98-107); Creatinine Clr Calc Pharmacy 84.5 ml/min; Glucose 116.0 mg/dl (70-99(Fasting)); Magnesium 1.6 mg/dl (1.7-2.4); Potassium 3.8 mmol/L (3.5-5.1); Sodium 140.0 mmol/L (136-145)
[2025-05-06 07:30] LABS: Hematocrit (blood only) 35.2 % (37.0-47.0); Hemoglobin 11.3 g/dl (12.0-16.0); Immature Granulocytes # (auto) 0.03 K/uL (0.01-0.20); Immature Granulocytes % (auto) 0.3 %; Mean Corpuscular Hemoglobin 27.0 pg (25.0-34.0); Mean Corpuscular Volume 84.0 fL (80.0-100.0); Platelet Count 296 K/uL (130-400); RDW Standard Deviation 44.2 fL (36.4-46.3); Red Blood Count 4.19 M/uL (4.20-5.40); White Blood Count 9.65 K/ul (4.8-10.8)
--- NOTE | 2025-05-06 08:37 | Fluoroscopy Report ---
FL hip LT 2-3V CLINICAL HISTORY: LEFT HIP FX COMPARISON STUDY: 05/04/2025 FLUOROSCOPY TIME: 62 seconds FLUOROSCOPY IMAGES: 4 EXPOSURE DOSE: 15 mGy FINDINGS: Fluoroscopy was provided for left hip internal fixation. IMPRESSION: Intraoperative fluoroscopy. ACT 112: Negative or not required by law. Electronically signed by: Godfrey Maddox M.D. 05/06/2025 8:36 AM
--- NOTE | 2025-05-06 08:37 | Orthopedic Progress Note ---
Date of Service May 06, 2025 Assessment & Plan (1) Subcapital fracture of left femur: Plan: Postop day #1 status post ORIF. Doing well overall. Pain is manageable in the left hip. Temperature of 100.6 was recorded. This was the only elevated temperature. Temperature was rechecked 20 minutes later was 98.2. Encourage incentive spirometry. Patient experiencing discomfort in the left thoracic paraspinal musculature similar to what she experienced when she was admitted previously. She is requesting a muscle relaxer. She does have tenderness in the paraspinal musculature, no midline tenderness. Lower dose Robaxin will be ordered. Her left hip dressing is clean, dry, intact. Left in place today. She will be starting Celebrex today. Per prior notes, patient denied allergy to sulfa. Aspirin 81 mg twice daily for 6 weeks. NURA stockings for 3 weeks. SCDs while in hospital. Weightbearing as tolerated with a walker. PT/OT. Ice to the left hip. Dressing change POD 2. Follow up scheduled listed in chart. Admission and Anticipated Discharge Date Admission Date: May 04, 2025 Subjective Patient is seen in bed this morning. She states that she is doing okay. Left hip pain is manageable. She is requesting a muscle relaxer for spasm in the left side of her upper back. States that this happened with prior surgery and muscle relaxer helped. She denies any fevers, chills, chest pain, shortness of breath, cough, numbness or tingling. Physical Exam Constitutional: Resting comfortably in bed. No distress. Pleasant. Cardiovascular: Left DP pulse 2+ Musculoskeletal: Left hip dressing is clean, dry, intact. No blistering. Minimal discomfort with passive logroll of the hip and passive hip flexion. No tenderness with light palpation about the left hip. Strength 5/5 with ankle plantarflexion, dorsiflexion, eversion. There is muscular tenderness left of midline in the mid to upper thoracic paraspinal musculature. No tenderness in the midline thoracic spine. Neurologic: No sensory deficits left lower extremity L3-S1 distribution to light touch. Results & Data Vital Signs (Past 12 Hours) Vital Signs Temp Pulse Resp BP Pulse Ox O2 Del Method 05/06/25 07:53 98.2 F 05/06/25 07:39 100.6 F H 83 14 124/77 92 Room Air 05/06/25 04:00 98.6 F 84 18 117/76 93 Room Air 05/05/25 23:14 98.1 F 92 H 18 121/77 93 Room Air 05/05/25 20:49 97.5 F L 87 16 126/78 92 Room Air Laboratory Results 05/06/25 05/05/25 05/05/25 06:28 20:39 10:04 WBC 9.65 7.88 RBC 4.19 L 4.55 Hgb 11.3 L 12.3 Hct 35.2 L 37.7 MCV 84.0 82.9 MCH 27.0 27.0 MCHC 32.1 32.6 RDW Std Deviation 44.2 42.7 RDW Coeff of Christen 14.5 14.3 Plt Count 296 322 MPV 11.0 10.3 Immature Gran % (Auto) 0.3 Neut % (Auto) 86.5 Lymph % (Auto) 6.7 Kimball % (Auto) 6.1 Eos % (Auto) 0.2 Baso % (Auto) 0.2 Neut # (Auto) 8.34 H Lymph # (Auto) 0.65 L Kimball # (Auto) 0.59 Eos # (Auto) 0.02 Baso # (Auto) 0.02 Immature Gran # (Auto) 0.03 Sodium 140 140 Potassium 3.8 3.3 L Chloride 109 H 107 Carbon Dioxide 24 27 Anion Gap 7 6 BUN 11 17 Creatinine 0.63 0.70 Est Cr Clr Drug Dosing 84.5 76.0 eGFR 92.45 90.14 BUN/Creatinine Ratio 17.5 24.3 H Glucose 116 H 121 H POC Glucose 188 H Calcium 8.6 9.4 Magnesium 1.6 L 1.6 L 25-OH Vitamin D Total 102.3 H
[2025-05-06] MEDS: CELECOXIB 100 MG CAP PO SCH (08:47)
[2025-05-06] MEDS: ASPIRIN 81 MG ECTAB PO SCH (08:47)
[2025-05-06] MEDS: METHOCARBAMOL 500 MG TABLET PO PRN (08:54)
--- NOTE | 2025-05-06 09:36 | Hospitalist Progress Note ---
"Date of Service May 06, 2025 Assessment & Plan (1) Subcapital fracture of left femur: (2) Hypokalemia: Plan 75-year-old woman with PMHx of prediabetes, HTN, thyroid nodules, laryngeal pharyngeal reflux, HLD, GERD, and vitamin D deficiency. She presented to the ED after a fall onto her left hip while mowing the lawn on the day of arrival. Not on blood thinners. Did not hit head. Imaging on admission revealed acute left subcapital femoral neck fracture, also in setting of mild hypokalemia and mild leukocytosis. UA negative for infection. CXR with no acute findings. She had an ORIF of her left hip on 05/[address] Robert without complications. #Age-related osteoporotic left femur fracture | Fall - patient presented after mechanical fall while mowing the lawn. No precipitating symptoms. Femur/pelvis x-rays on admission revealed left subcapital femoral neck fracture. - Ortho consulted - S/p ORIF 05/05 - EBL 50 cc, no complications noted. Can weight-bear as tolerated with walker - Mild acute blood loss anemia secondary to surgical intervention with postop Hgb 11.3 stable. No indication for blood transfusion. Continue to monitor - Started on Celebrex 100 mg daily per ortho - continue - Robaxin 500 mg BID PRN muscle spasms per ortho - continue - Adjusted pain regimen: Scheduled Tylenol, oxycodone 5-10 mg PRN mod-severe pain, morphine 2 mg IV PRN breakthrough pain - DVT prophylaxis: SCDs while hospitalized, NURA stockings x 3 weeks, aspirin 81 mg twice daily x 6 weeks #Hypokalemia | Hypomagnesemia - Hypokalemia resolved after PO and IV repletion - Mild hypomagnesemia persists despite IV repletion - will give mag ox 400 mg x 2 today - Monitor BMP, mag with AM labs #Prediabetes- Glucose on admission 117; Metformin at baseline; SSI deferred at admission, BSG ACHS once eating #HTN- Triamterene/Chlorothiazide, amlodipine - continue #Hypercholesterolemia- Fenofibrate - continue #GERD- Esomeprazole - continue Dispo: Pending PT/OT evaluations postoperatively VTE Prophylaxis: SCDs while hospitalized, NURA stockings x 3 weeks, aspirin 81 mg twice daily x 6 weeks Adjusted pain regimen Repleted magnesium Admission and Anticipated Discharge Date Admission Date: May 04, 2025 Supervising Physician Co-Signing Physician Notes PA Supervision Note: I did not personally see or examine the patient today, but I verified all patrick points of FRANKIE Peratla's assessment and plan with the following exceptions/additions: Vitamin D level elevated but fortunately calcium level is normal Would consider decreasing home dose of vitamin D Subjective Patient seen and evaluated in bedside chair. She reports that her pain is well- controlled at this time. She notes her back spasms have resolved with the muscle relaxer. We discussed therapies recommendation of acute rehab, Jael is declining at this time and wants to return home. She denies any complaints or concerns at this time. Physical Exam Physical Exam: General: No acute distress, nondiaphoretic, well-developed, well-nourished. Skin: Warm, dry. No rashes or peripheral edema noted. Cardiac: Regular rate and rhythm without murmurs gallops or rubs. Pulm: Clear to auscultation bilaterally without wheezes, rales or rhonchi. Normal respiratory effort. 94% on room air. Abdominal: Soft, nontender, nondistended. Bowel sounds present. Extremities: Left hip dressing clean dry intact. Motor and sensory function intact. Neurovascularly intact. Neuro: A&O x3. No focal neurological deficits. Results & Data Results & Data Vital Signs (Past 12 Hours) Vital Signs Temp Pulse Resp BP Pulse Ox O2 Del Method 05/06/25 07:53 98.2 F 05/06/25 07:39 100.6 F H 83 14 124/77 92 Room Air 05/06/25 04:00 98.6 F 84 18 117/76 93 Room Air 05/05/25 23:14 98.1 F 92 H 18 121/77 93 Room Air Laboratory Results Reviewed CBC with differential Reviewed BMP, chemistries PG Care Time/CCT Total # of Minutes Spent Total Time Spent with Patient: Total time spent is greater than 50% in coordination of care (as documented) at patient's floor/unit and/or counseling patient: Coding Level of Care Code 26688 SUB INP/OBS CARE 3/50MIN Diagnoses Subcapital fracture of left femur S72.012A Hypokalemia E87.6"
[2025-05-06] MEDS ORDERED: MoRPHine SULFATE 2 MG/ML CARP IV PRN (09:44)
[2025-05-06] MEDS: MAGNESIUM OXIDE 400 MG TAB PO SCH (10:50)
[2025-05-07] MEDS ORDERED: MAGNESIUM OXIDE 400 MG TAB PO SCH (09:00)
--- NOTE | 2025-05-07 09:24 | Orthopedic Progress Note ---
Date of Service May 07, 2025 Assessment & Plan (1) Subcapital fracture of left femur: Plan: Postop day #2 status post ORIF L hip fracture, Doing well. Pain is manageable in the left hip. Resume diet Encourage incentive spirometry. Patient experiencing discomfort in the left thoracic paraspinal musculature similar to what she experienced when she was admitted previously. She is requesting a muscle relaxer. Lower dose Robaxin ordered. Her left hip dressing is clean, dry, intact. Left in place today. Celebrex switched BID. Per prior notes, patient denied allergy to sulfa. Aspirin 81 mg twice daily for 6 weeks. NURA stockings for 3 weeks. SCDs while in hospital. Weightbearing as tolerated with a walker. PT/OT. Ice to the left hip. Dressing change POD 2, later to [place]. Follow up scheduled listed in chart. Continue care per Hospitalist service Admission and Anticipated Discharge Date Admission Date: May 04, 2025 Subjective Doing well. C/O muscle pain in upper back when laying down/contact. Physical Exam Physical Exam: LLE: Sensation to light touch intact distally. Motor to gastroc soleus, EHL, Tib ant intact. Calf soft & non-tender. Dressing clean,dry, intact. Was sitting in chair and had ambulated down the [place] with walker, working with PT. She does have tenderness in the paraspinal musculature, no midline tenderness. Results & Data Vital Signs (Past 12 Hours) Vital Signs Temp Pulse Resp BP Pulse Ox O2 Del Method 05/07/25 07:00 36.8 C 79 16 116/81 93 Room Air 05/06/25 23:11 36.4 C L 78 16 132/83 93 Room Air Laboratory Results 05/06/25 05/06/25 Range/Units 16:49 11:46 POC Glucose 92 101 H (70-99) mg/dl Laboratory Results WBC 9.65 K/ul (4.8-10.8) 05/06/25 06:28 RBC 4.19 M/uL (4.20-5.40) L 05/06/25 06:28 Hgb 11.3 g/dl (12.0-16.0) L 05/06/25 06:28 Hct 35.2 % (37.0-47.0) L 05/06/25 06:28 MCV 84.0 fL (80.0-100.0) 05/06/25 06: MCH 27.0 pg (25.0-34.0) 05/06/25 06: MCHC 32.1 g/dL (32.0-36.0) 05/06/25 06: RDW Std Deviation 44.2 fL (36.4-46.3) 05/06/25 06: RDW Coeff of [place] 14.5 % (11.5-14.5) 05/06/25: Plt Count 296 K/uL (130-400) 05/06/25 06: MPV 11.0 fL (9.4-12.4) 05/06/25: Immature Gran % (Auto) 0.3 % 05/06/25 06: Neut % (Auto) 86.5 % 05/06/25 06: Lymph % (Auto) 6.7 % 05/06/25: Pike % (Auto) 6.1 % 05/06/25: Eos % (Auto) 0.2 % 05/06/25 06: Baso % (Auto) 0.2 % 05/06/25: Neut # (Auto) 8.34 K/uL (1.40-6.50) H 05/06/25 06: Lymph # (Auto) 0.65 K/uL (1.20-3.40) L 05/06/25 06: Pike # (Auto) 0.59 K/uL (0.11-0.59) 05/06/25 06: Eos # (Auto) 0.02 K/uL (0.00-0.50) 05/06/25 06:28 Baso # (Auto) 0.02 K/uL (0.00-0.20) 05/06/25 06: Immature Gran # (Auto) 0.03 K/uL (0.01-0.20) 05/06/25 06: PT 10.5 Seconds (9.0-12.0) 05/04/25 23:23 INR 1.0 (0.9-1.1) 05/04/25 23:23 Sodium 140 mmol/L (136-145) 05/06/25 06:28 Potassium 3.8 mmol/L (3.5-5.1) 05/06/25 06:28 Chloride 109 mmol/L (98-107) H 05/06/25 06:28 Carbon Dioxide 24 mmol/L (21-32) 05/06/25 06:28 Anion Gap 7 (3-11) 05/06/25 06:28 BUN 11 mg/dl (6-23) 05/06/25 06:28 Creatinine 0.63 mg/dl (0.6-1.2) 05/06/25 06:28 Est Cr Clr Drug Dosing 84.5 ml/min 05/06/25 06:28 eGFR 92.45 05/06/25 06:28 BUN/Creatinine Ratio 17.5 (10-20) 05/06/25 06:28 Glucose 116 mg/dl (70-99(Fasting)) H 05/06/25 06:28 POC Glucose 92 mg/dl (70-99) 05/06/25 16:49 Calcium 8.6 mg/dl (8.6-10.3) 05/06/25 06:28 Magnesium 1.6 mg/dl (1.7-2.4) L 05/06/25 06:28 Total Bilirubin 0.3 mg/dl (0.2-1.0) 05/04/25 23:23 AST 25 U/L (13-39) 05/04/25 23:23 ALT 23 U/L (7-52) 05/04/25 23:23 Alkaline Phosphatase 47 U/L (34-104) 05/04/25 23:23 Total Protein 6.9 gm/dl (6.0-8.3) 05/04/25 23:23 Albumin 4.0 gm/dl (3.4-5.0) 05/04/25 23:23 Globulin 2.9 gm/dl (2.5-4.0) 05/04/25 23:23 Albumin/Globulin Ratio 1.4 (0.9-2) 05/04/25 23:23 25-OH Vitamin D Total 102.3 ng/ml (30-100) H 05/06/25 06:28 Urine Color Yellow 05/04/25 23:22 Urine Appearance Clear (Clear) 05/04/25 23:22 Urine pH 6.5 (4.5-7.5) 05/04/25 23:22 Ur Specific [place] 1.014 (1.000-1.030) 05/04/25 23:22 Urine Protein Negative (Negative) 05/04/25 23:22 Urine Glucose (UA) Negative (Negative) 05/04/25 23:22 Urine Ketones Negative (Negative) 05/04/25 23:22 Urine Blood Negative (Negative) 05/04/25 23:22 Urine Nitrite Negative (Negative) 05/04/25 23:22 Urine Bilirubin Negative (Negative) 05/04/25 23:22 Urine Urobilinogen Negative (Negative) 05/04/25 23:22 Ur Leukocyte Esterase Negative (Negative) 05/04/25 23:22 Urine Comment 05/04/25 23:22 Impressions Chest X-Ray 05/04/25 00:00 Exam(s): XR CXR 1 VIEW EXAM: XR Chest, 1 View CLINICAL HISTORY: Reason for exam: LEFT HIP FX. TECHNIQUE: Frontal view of the chest. COMPARISON: 11/09/2023 FINDINGS: Lungs: No consolidation. No overt edema. Pleural space: No pleural effusion. No pneumothorax. Heart: Unremarkable. No cardiomegaly. IMPRESSION: No acute cardiopulmonary abnormality. Electronically signed by: Jesu Rankin MD 05/04/25 23:19 PM Femur X-Ray 05/04/25 20:16 Exam(s): XR LEFT FEMUR, 2 views EXAM: XR Left Femur, 2 Views CLINICAL HISTORY: Reason for exam: fall, left hip and leg pain. TECHNIQUE: Frontal and lateral views of the left femur. COMPARISON: No relevant prior studies available. FINDINGS: Bones/joints: Subcapital femoral neck fracture on the left. Degenerative changes in the medial compartment of the knee. Soft tissues: Unremarkable. IMPRESSION: Subcapital femoral neck fracture on the left. Electronically signed by: Jesu Rankin MD 05/04/25 23:18 PM Pelvis X-Ray 05/04/25 20:16 Exam(s): XR PELVIS, 1-2 views EXAM: XR Pelvis, 1 or 2 Views CLINICAL HISTORY: Reason for exam: fall, left hip pain. TECHNIQUE: Frontal view of the pelvis. COMPARISON: No relevant prior studies available. FINDINGS: Bones/joints: Subcapital femoral neck fracture on the left. Osteopenia which somewhat limits evaluation. Degenerative changes in the lumbar spine. Other findings: Calcified fibroid in the pelvis. IMPRESSION: Subcapital femoral neck fracture on the left. Electronically signed by: Jesu Rankin MD 05/04/25 23:19 PM Hip X-Ray 05/05/25 00:00 FL hip LT 2-3V CLINICAL HISTORY: LEFT HIP FX COMPARISON STUDY: 05/04/2025 FLUOROSCOPY TIME: 62 seconds FLUOROSCOPY IMAGES: 4 EXPOSURE DOSE: 15 mGy FINDINGS: Fluoroscopy was provided for left hip internal fixation. IMPRESSION: Intraoperative fluoroscopy. ACT 112: Negative or not required by law. Electronically signed by: Godfrey Maddox M.D. 05/06/2025 8:36 AM
[2025-05-07 10:06] LABS: Hematocrit (blood only) 34.7 % (37.0-47.0); Hemoglobin 11.2 g/dl (12.0-16.0); Mean Corpuscular Hemoglobin 27.1 pg (25.0-34.0); Mean Corpuscular Volume 84.0 fL (80.0-100.0); Platelet Count 297 K/uL (130-400); RDW Standard Deviation 44.5 fL (36.4-46.3); Red Blood Count 4.13 M/uL (4.20-5.40); White Blood Count 6.78 K/ul (4.8-10.8)
[2025-05-07 10:25] LABS: Anion Gap 6.0 (3-11); Blood Urea Nitrogen 14.0 mg/dl (6-23); Calcium 8.8 mg/dl (8.6-10.3); Carbon Dioxide 25.0 mmol/L (21-32); Chloride 107.0 mmol/L (98-107); Creatinine Clr Calc Pharmacy 81.9 ml/min; Glucose 141.0 mg/dl (70-99(Fasting)); Magnesium 1.5 mg/dl (1.7-2.4); Potassium 3.5 mmol/L (3.5-5.1); Sodium 138.0 mmol/L (136-145)
--- NOTE | 2025-05-07 12:08 | Hospitalist Progress Note ---
"Date of Service May 07, 2025 Assessment & Plan (1) Subcapital fracture of left femur: (2) Hypokalemia: Plan 75-year-old woman with PMHx of prediabetes, HTN, thyroid nodules, laryngeal pharyngeal reflux, HLD, GERD, and vitamin D deficiency. She presented to the ED after a fall onto her left hip while mowing the lawn on the day of arrival. Not on blood thinners. Did not hit head. Imaging on admission revealed acute left subcapital femoral neck fracture, also in setting of mild hypokalemia and mild leukocytosis. UA negative for infection. CXR with no acute findings. She had an ORIF of her left hip on 05/[address] Robert without complications. #Age-related osteoporotic left femur fracture | Fall - patient presented after mechanical fall while mowing the lawn. No precipitating symptoms. Femur/pelvis x-rays on admission revealed left subcapital femoral neck fracture. - Ortho consulted - S/p ORIF 05/05 - EBL 50 cc, no complications noted. Can weight-bear as tolerated with walker - Mild acute blood loss anemia secondary to surgical intervention with postop Hgb 11.2 stable. No indication for blood transfusion. Continue to monitor - Started on Celebrex 100 mg BID per ortho - continue - Robaxin 500 mg BID PRN muscle spasms per ortho - continue - Vit D level high at 102 - was taking cholecalciferol 125 mcg daily, will reduce to 25 mcg daily - Adjusted pain regimen: Scheduled Tylenol, oxycodone 5-10 mg PRN mod-severe pain, morphine 2 mg IV PRN breakthrough pain - DVT prophylaxis: SCDs while hospitalized, NURA stockings x 3 weeks, aspirin 81 mg twice daily x 6 weeks #Hypokalemia | Hypomagnesemia - Hypokalemia resolved after PO and IV repletion - Mild hypomagnesemia persists despite repletion; asymptomatic - start mag ox 400 mg BID - Monitor BMP, mag with AM labs #Prediabetes- Glucose on admission 117; Metformin at baseline; SSI deferred at admission, BSG ACHS once eating #HTN- Triamterene/Chlorothiazide is on hold; amlodipine - continue #Hypercholesterolemia- Fenofibrate - continue #GERD- Esomeprazole - continue Dispo: PT/OT recommending rehab however patient is improving postoperatively. Anticipate she will be able to return home with home health services in the next 24-48 hours. VTE Prophylaxis: SCDs while hospitalized, NURA stockings x 3 weeks, aspirin 81 mg twice daily x 6 weeks Decreased vitamin D3 Started magnesium supplementation Admission and Anticipated Discharge Date Admission Date: May 04, 2025 Supervising Physician Co-Signing Physician Notes FRANKIE Supervision Note: I did not personally see or examine the patient today, but I verified all patrick points of FRANKIE Peralta's assessment and plan with the following exceptions/additions: Magnesium remains low despite oral replacement-give 2 g of IV magnesium sulfate and continue oral magnesium replacement Check magnesium level in the morning and continue holding HCTZ Subjective Patient seen and evaluated in bedside chair. She reports feeling well today. She worked with therapy earlier and did much better today. She was able to walk the halls but then and did a few stairs. She is still declining rehab at this time but based on how she described her sessions with PT and OT, it seems reasonable for her to return home in a couple days. We discussed continued inpatient stay for further therapy and monitoring how she progresses and hopefully discharge home with home health services instead of needing acute rehab. She is happy with this plan. She denies any acute complaints or concerns at this time. Physical Exam Physical Exam: General: No acute distress, nondiaphoretic, well-developed, well-nourished. Skin: Warm, dry. No rashes or peripheral edema noted. Cardiac: Well-perfused. Rate in 70s. Pulm: Normal respiratory effort. 93% on room air. Extremities: Left hip dressing clean dry intact. Motor and sensory function intact. Neurovascularly intact. Neuro: A&O x3. No focal neurological deficits. Results & Data Results & Data Vital Signs (Past 12 Hours) Vital Signs Temp Pulse Resp BP Pulse Ox O2 Del Method 05/07/25 07:00 98.2 F 79 16 116/81 93 Room Air Laboratory Results Reviewed CBC Reviewed BMP, mag PG Care Time/CCT Total # of Minutes Spent Total Time Spent with Patient: Total time spent is greater than 50% in coordination of care (as documented) at patient's floor/unit and/or counseling patient: Coding Level of Care Code 59328 SUB INP/OBS CARE 3/50MIN Diagnoses Subcapital fracture of left femur S72.012A Hypokalemia E87.6"
[2025-05-07] MEDS: POLYETHYLENE (MIRALAX) 17 GM PACK PO PRN (16:44)
[2025-05-07] MEDS: MAGNESIUM SULFATE / D5W 1 GM/100 ML BAG IV SCH (18:35)
[2025-05-07] MEDS: CELECOXIB 100 MG CAP PO SCH (21:17)
[2025-05-07] MEDS: MAGNESIUM OXIDE 400 MG TAB PO SCH (21:34)
[2025-05-07] MEDS: CHOLECALCIFEROL 25 MCG (1000 UNITS) TAB PO SCH (21:34)
[2025-05-07] MEDS: LIDOCAINE 5% 1 PATCH TD STA (23:03)
[2025-05-08 07:39] LABS: Hematocrit (blood only) 34.0 % (37.0-47.0); Hemoglobin 11.4 g/dl (12.0-16.0); Mean Corpuscular Hemoglobin 27.7 pg (25.0-34.0); Mean Corpuscular Volume 82.5 fL (80.0-100.0); Platelet Count 305 K/uL (130-400); RDW Standard Deviation 42.9 fL (36.4-46.3); Red Blood Count 4.12 M/uL (4.20-5.40); White Blood Count 4.93 K/ul (4.8-10.8)
[2025-05-08 08:00] LABS: Anion Gap 5.0 (3-11); Blood Urea Nitrogen 18.0 mg/dl (6-23); Calcium 9.0 mg/dl (8.6-10.3); Carbon Dioxide 28.0 mmol/L (21-32); Chloride 108.0 mmol/L (98-107); Creatinine Clr Calc Pharmacy 72.9 ml/min; Glucose 102.0 mg/dl (70-99(Fasting)); Magnesium 1.9 mg/dl (1.7-2.4); Potassium 3.6 mmol/L (3.5-5.1); Sodium 141.0 mmol/L (136-145)
[2025-05-08] MEDS: REMOVE LIDODERM PATCH SCH (08:17)
--- NOTE | 2025-05-08 09:18 | Hospitalist Progress Note ---
"Date of Service May 08, 2025 Assessment & Plan (1) Subcapital fracture of left femur: (2) Hypokalemia: Plan 75-year-old woman with PMHx of prediabetes, HTN, thyroid nodules, laryngeal pharyngeal reflux, HLD, GERD, and vitamin D deficiency. She presented to the ED after a fall onto her left hip while mowing the lawn on the day of arrival. Not on blood thinners. Did not hit head. Imaging on admission revealed acute left subcapital femoral neck fracture, also in setting of mild hypokalemia and mild leukocytosis. UA negative for infection. CXR with no acute findings. She had an ORIF of her left hip on 05/[address] Robert without complications. #Age-related osteoporotic left femur fracture | Fall - patient presented after mechanical fall while mowing the lawn. No precipitating symptoms. Femur/pelvis x-rays on admission revealed left subcapital femoral neck fracture. - Ortho consulted - S/p ORIF 05/05 - EBL 50 cc, no complications noted. Can weight-bear as tolerated with walker - Mild acute blood loss anemia secondary to surgical intervention with postop Hgb 11.4 stable. No indication for blood transfusion. Continue to monitor - Started on Celebrex 100 mg BID per ortho - continue - Robaxin 500 mg BID PRN muscle spasms per ortho - continue - Vit D level high at 102 - was taking cholecalciferol 125 mcg daily, reduced to 25 mcg daily - continue - Adjusted pain regimen: Scheduled Tylenol, oxycodone 5-10 mg PRN mod-severe pain - DVT prophylaxis: SCDs while hospitalized, NURA stockings x 3 weeks, aspirin 81 mg twice daily x 6 weeks #Hypokalemia | Hypomagnesemia - Hypokalemia resolved after PO and IV repletion - Hypomagnesemia resolved after PO and IV repletion - started/continued on mag ox 400 mg BID - Monitor BMP, mag with AM labs #Prediabetes- Glucose on admission 117; Metformin at baseline; SSI deferred at admission #HTN- Triamterene/Chlorothiazide is on hold; amlodipine - continue #Hypercholesterolemia- Fenofibrate - continue #GERD- Esomeprazole - continue Dispo: Anticipate discharge home tomorrow 05/09 VTE Prophylaxis: SCDs while hospitalized, NURA stockings x 3 weeks, aspirin 81 mg twice daily x 6 weeks Discontinued IV morphine Admission and Anticipated Discharge Date Admission Date: May 04, 2025 Supervising Physician Co-Signing Physician Notes PA Supervision Note: I did not personally see or examine the patient today, but I verified all patrick points of FRANKIE Peralta's assessment and plan with the following exceptions/additions: None Subjective Patient seen and evaluated in bedside chair. She continues to progress well with ambulation postoperatively. She denies any acute complaints or concerns at this time. Her pain is well-controlled. Plan is to discharge home tomorrow. She asked for CM to assist her in coordinating a ride; will let her rn case manager know. Physical Exam Physical Exam: General: No acute distress, nondiaphoretic, well-developed, well-nourished. Skin: Warm, dry. No rashes or peripheral edema noted. Cardiac: Well-perfused. Rate in 70s. Pulm: Normal respiratory effort. 94% on room air. Extremities: Left hip dressing clean dry intact. Motor and sensory function intact. Neurovascularly intact. Neuro: A&O x3. No focal neurological deficits. Results & Data Results & Data Vital Signs (Past 12 Hours) Vital Signs Temp Pulse Pulse Resp BP Pulse Ox O2 Del Method 05/08/25 07:05 98.1 F 70 18 121/81 94 Room Air 05/07/25 23:31 97.3 F L 76 16 120/80 96 Room Air Laboratory Results Reviewed CBC Reviewed BMP PG Care Time/CCT Total # of Minutes Spent Total Time Spent with Patient: Total time spent is greater than 50% in coordination of care (as documented) at patient's floor/unit and/or counseling patient: Coding Level of Care Code 24426 SUB INP/OBS CARE 2/35MIN Diagnoses Subcapital fracture of left femur S72.012A Hypokalemia E87.6"
--- NOTE | 2025-05-08 09:27 | Orthopedic Progress Note ---
Date of Service May 08, 2025 Assessment & Plan (1) Subcapital fracture of left femur: Plan: Postop day #3 status post ORIF L hip fracture, Doing well. Pain is manageable in the left hip. Pt may be OOB to chair and bathroom Encourage incentive spirometry. Patient experiencing discomfort in the left thoracic paraspinal musculature similar to what she experienced when she was admitted previously. She was give lower dose Robaxin. Her left hip dressing is clean, dry, intact. Left in place today. Celebrex switched BID. Per prior notes, patient denied allergy to sulfa. Aspirin 81 mg twice daily for 6 weeks. NURA stockings for 3 weeks. SCDs while in hospital. Weightbearing as tolerated with a walker. Continue PT/OT. Ice to the left hip. Follow up scheduled listed in chart. Continue care per Hospitalist service Admission and Anticipated Discharge Date Admission Date: May 04, 2025 Subjective Patient was seen and examined with nurse in the chair. She reports that she is overall doing well. She has been getting up and walking and feels very comfortable doing as independent use of the walker. Reports 5 out of 10 pain. Physical Exam Physical Exam: Patient is dressing dry intact and was left in place. Soft and compressible incision. She has been motion but. She can actively do dorsiflexion and plantarflexion against resistance. She is able to tolerate some light passive motion for hip flexion to 90 degrees and adduction, abduction, hip internal and external rotation. Calf is soft and nontender. Sensation intact distally. Pulses present. Results & Data Vital Signs (Past 12 Hours) Vital Signs Temp Pulse Pulse Resp BP Pulse Ox O2 Del Method 05/08/25 07:05 36.7 C 70 18 121/81 94 Room Air 05/07/25 23:31 36.3 C L 76 16 120/80 96 Room Air
[2025-05-08] MEDS: LIDOCAINE 5% 1 PATCH TD SCH (23:06)
[2025-05-09 07:44] LABS: Anion Gap 6.0 (3-11); Blood Urea Nitrogen 22.0 mg/dl (6-23); Calcium 9.2 mg/dl (8.6-10.3); Carbon Dioxide 27.0 mmol/L (21-32); Chloride 108.0 mmol/L (98-107); Creatinine Clr Calc Pharmacy 70.0 ml/min; Glucose 97.0 mg/dl (70-99(Fasting)); Magnesium 1.7 mg/dl (1.7-2.4); Potassium 3.6 mmol/L (3.5-5.1); Sodium 141.0 mmol/L (136-145)
[2025-05-09 07:57] VITALS: BP 124/81; RESP 20; TEMP 99.5; O2SAT 98
--- NOTE | 2025-05-09 10:24 | Orthopedic Progress Note ---
Date of Service May 09, 2025 Assessment & Plan (1) Subcapital fracture of left femur: Plan: Postop day #4 status post ORIF L hip fracture, Doing well. Pain is manageable in the left hip. Pt may be OOB to chair and bathroom Encourage incentive spirometry. Patient experiencing discomfort in the left thoracic paraspinal musculature similar to what she experienced when she was admitted previously. She was give lower dose Robaxin. Her left hip dressing is clean, dry, intact. Left in place today. Celebrex switched BID. Per prior notes, patient denied allergy to sulfa. Aspirin 81 mg twice daily for 6 weeks. NURA stockings for 3 weeks. SCDs while in hospital. Weightbearing as tolerated with a walker. Continue PT/OT. Ice to the left hip. Follow up scheduled listed in chart. Continue care per Hospitalist service Orthopedically cleared for discharge Admission and Anticipated Discharge Date Admission Date: May 04, 2025 Subjective This 75-year-old female is 4 days status post left hip fracture open reduction internal fixation. She states she is doing very well. She states her pain is well-controlled with p.o. pain medication. She states she has met with case management and is planning on going home with in-home physical therapy, hopefully later today. Currently she denies chest pain, shortness of breath, fe edmar, chills, sweats, nausea, vomiting, diarrhea, difficulty voiding or numbness or tingling in her left lower extremity. Review of Systems Review of Systems: All systems reviewed & are unremarkable except as noted in Subjective Physical Exam Physical Exam: Left lower extremity: Surgical dressings are clean dry and intact left in place. Patient is able to easily transition from a seated to a standing position and able to ambulate with the assistance of a walker around her room. Her quad strength is 4+ out of 5. She tolerates passive hip flexion to 90 degrees and has only minimal discomfort with light passive internal or external rotation. She is able to perform active straight leg raise test. She is able to actively dorsi and plantarflex her foot. Her peripheral pulses are 2+. She is neurovascularly intact in the left lower extremity. Results & Data Vital Signs (Past 12 Hours) Vital Signs Temp Pulse Pulse Resp BP Pulse Ox O2 Del Method 05/09/25 07:56 37.5 C 78 20 124/81 98 Room Air 05/08/25 23:12 36.5 C 93 H 18 120/80 95 Room Air Diagnostic Findings Laboratory Results WBC 4.93 K/ul (4.8-10.8) 05/08/25 07:10 RBC 4.12 M/uL (4.20-5.40) L 05/08/25 07:10 Hgb 11.4 g/dl (12.0-16.0) L 05/08/25 07:10 Hct 34.0 % (37.0-47.0) L 05/08/25 07:10 MCV 82.5 fL (80.0-100.0) 05/08/25 07:10 MCH 27.7 pg (25.0-34.0) 05/08/25 07:10 MCHC 33.5 g/dL (32.0-36.0) 05/08/25 07:10 RDW Std Deviation 42.9 fL (36.4-46.3) 05/08/25 07:10 RDW Coeff of Christen 14.2 % (11.5-14.5) 05/08/25 07:10 Plt Count 305 K/uL (130-400) 05/08/25 07:10 MPV 10.4 fL (9.4-12.4) 05/08/25 07:10 Immature Gran % (Auto) 0.3 % 05/06/25 06:28 Neut % (Auto) 86.5 % 05/06/25 06:28 Lymph % (Auto) 6.7 % 05/06/25 06:28 Faulkner % (Auto) 6.1 % 05/06/25 06:28 Eos % (Auto) 0.2 % 05/06/25 06:28 Baso % (Auto) 0.2 % 05/06/25 06:28 Neut # (Auto) 8.34 K/uL (1.40-6.50) H 05/06/25 06:28 Lymph # (Auto) 0.65 K/uL (1.20-3.40) L 05/06/25 06:28 Faulkner # (Auto) 0.59 K/uL (0.11-0.59) 05/06/25 06:28 Eos # (Auto) 0.02 K/uL (0.00-0.50) 05/06/25 06:28 Baso # (Auto) 0.02 K/uL (0.00-0.20) 05/06/25 06:28 Immature Gran # (Auto) 0.03 K/uL (0.01-0.20) 05/06/25 06:28 PT 10.5 Seconds (9.0-12.0) 05/04/25 23:23 INR 1.0 (0.9-1.1) 05/04/25 23:23 Sodium 141 mmol/L (136-145) 05/09/25 06:51 Potassium 3.6 mmol/L (3.5-5.1) 05/09/25 06:51 Chloride 108 mmol/L (98-107) H 05/09/25 06:51 Carbon Dioxide 27 mmol/L (21-32) 05/09/25 06:51 Anion Gap 6 (3-11) 05/09/25 06:51 BUN 22 mg/dl (6-23) 05/09/25 06:51 Creatinine 0.76 mg/dl (0.6-1.2) 05/09/25 06:51 Est Cr Clr Drug Dosing 70.0 ml/min 05/09/25 06:51 eGFR 81.67 05/09/25 06:51 BUN/Creatinine Ratio 28.9 (10-20) H 05/09/25 06:51 Glucose 97 mg/dl (70-99(Fasting)) 05/09/25 06:51 POC Glucose 92 mg/dl (70-99) 05/06/25 16:49 Calcium 9.2 mg/dl (8.6-10.3) 05/09/25 06:51 Magnesium 1.7 mg/dl (1.7-2.4) 05/09/25 06:51 Total Bilirubin 0.3 mg/dl (0.2-1.0) 05/04/25 23:23 AST 25 U/L (13-39) 05/04/25 23:23 ALT 23 U/L (7-52) 05/04/25 23:23 Alkaline Phosphatase 47 U/L (34-104) 05/04/25 23:23 Total Protein 6.9 gm/dl (6.0-8.3) 05/04/25 23:23 Albumin 4.0 gm/dl (3.4-5.0) 05/04/25 23:23 Globulin 2.9 gm/dl (2.5-4.0) 05/04/25 23:23 Albumin/Globulin Ratio 1.4 (0.9-2) 05/04/25 23:23 25-OH Vitamin D Total 102.3 ng/ml (30-100) H 05/06/25 06:28 Urine Color Yellow 05/04/25 23:22 Urine Appearance Clear (Clear) 05/04/25 23:22 Urine pH 6.5 (4.5-7.5) 05/04/25 23:22 Ur Specific Dawson 1.014 (1.000-1.030) 05/04/25 23:22 Urine Protein Negative (Negative) 05/04/25 23:22 Urine Glucose (UA) Negative (Negative) 05/04/25 23:22 Urine Ketones Negative (Negative) 05/04/25 23:22 Urine Blood Negative (Negative) 05/04/25 23:22 Urine Nitrite Negative (Negative) 05/04/25 23:22 Urine Bilirubin Negative (Negative) 05/04/25 23:22 Urine Urobilinogen Negative (Negative) 05/04/25 23:22 Ur Leukocyte Esterase Negative (Negative) 05/04/25 23:22 Urine Comment 05/04/25 23:22 Impressions Chest X-Ray 05/04/25 00:00 Exam(s): XR CXR 1 VIEW EXAM: XR Chest, 1 View CLINICAL HISTORY: Reason for exam: LEFT HIP FX. TECHNIQUE: Frontal view of the chest. COMPARISON: 11/09/2023 FINDINGS: Lungs: No consolidation. No overt edema. Pleural space: No pleural effusion. No pneumothorax. Heart: Unremarkable. No cardiomegaly. IMPRESSION: No acute cardiopulmonary abnormality. Electronically signed by: Jesu Rankin MD 05/04/25 23:19 PM Femur X-Ray 05/04/25 20:16 Exam(s): XR LEFT FEMUR, 2 views EXAM: XR Left Femur, 2 Views CLINICAL HISTORY: Reason for exam: fall, left hip and leg pain. TECHNIQUE: Frontal and lateral views of the left femur. COMPARISON: No relevant prior studies available. FINDINGS: Bones/joints: Subcapital femoral neck fracture on the left. Degenerative changes in the medial compartment of the knee. Soft tissues: Unremarkable. IMPRESSION: Subcapital femoral neck fracture on the left. Electronically signed by: Jesu Rankin MD 05/04/25 23:18 PM Pelvis X-Ray 05/04/25 20:16 Exam(s): XR PELVIS, 1-2 views EXAM: XR Pelvis, 1 or 2 Views CLINICAL HISTORY: Reason for exam: fall, left hip pain. TECHNIQUE: Frontal view of the pelvis. COMPARISON: No relevant prior studies available. FINDINGS: Bones/joints: Subcapital femoral neck fracture on the left. Osteopenia which somewhat limits evaluation. Degenerative changes in the lumbar spine. Other findings: Calcified fibroid in the pelvis. IMPRESSION: Subcapital femoral neck fracture on the left. Electronically signed by: Jesu Rankin MD 05/04/25 23:19 PM Hip X-Ray 05/05/25 00:00 FL hip LT 2-3V CLINICAL HISTORY: LEFT HIP FX COMPARISON STUDY: 05/04/2025 FLUOROSCOPY TIME: 62 seconds FLUOROSCOPY IMAGES: 4 EXPOSURE DOSE: 15 mGy FINDINGS: Fluoroscopy was provided for left hip internal fixation. IMPRESSION: Intraoperative fluoroscopy. ACT 112: Negative or not required by law. Electronically signed by: Godfrey Maddox M.D. 05/06/2025 8:36 AM
--- NOTE | 2025-05-09 12:33 | Discharge Summary ---
Discharge Summary Date of Service May 09, 2025 Principal Dx & Hospital Course #1 = Principal Diagnosis (1) Subcapital fracture of left femur: (2) Hypomagnesemia: Plan 75-year-old woman with PMHx of prediabetes, HTN, thyroid nodules, laryngeal pharyngeal reflux, HLD, GERD, and vitamin D deficiency. She presented to the ED after a fall onto her left hip while mowing the lawn on the day of arrival. Not on blood thinners. Did not hit head. Imaging on admission revealed acute left subcapital femoral neck fracture, also in setting of mild hypokalemia and mild leukocytosis. UA negative for infection. CXR with no acute findings. She had an ORIF of her left hip on 05/[address] Robert without complications. #Age-related osteoporotic left femur fracture | Fall - patient presented after mechanical fall while mowing the lawn. No precipitating symptoms. Femur/pelvis x-rays on admission revealed left subcapital femoral neck fracture. - Ortho consulted - S/p ORIF 05/05 - EBL 50 cc, no complications noted. Can weight-bear as tolerated with walker. Follow-up in outpatient clinic as scheduled for staple removal - Mild acute blood loss anemia secondary to surgical intervention with postop Hgb 11.4 stable - Started on Celebrex 100 mg BID per ortho - continue for 2 weeks - Robaxin 500 mg BID PRN muscle spasms per ortho - continue - Vit D level high at 102 - was taking cholecalciferol 125 mcg daily, reduced to 25 mcg daily - continue reduced dose - Adjusted pain regimen: Scheduled Tylenol, oxycodone 5-10 mg PRN mod-severe pain - DVT prophylaxis: SCDs while hospitalized, NURA stockings x 3 weeks, aspirin 81 mg twice daily x 6 weeks - Set up with outpatient therapy services #Hypokalemia | Hypomagnesemia - Hypokalemia resolved after PO and IV repletion - Hypomagnesemia resolved after PO and IV repletion - started/continued on mag ox 400 mg BID #Prediabetes- Glucose on admission 117; Metformin at baseline; SSI deferred #HTN- Triamterene/Chlorothiazide, amlodipine - continue #Hypercholesterolemia- Fenofibrate - continue #GERD- Esomeprazole - continue Dispo: Discharged home 05/09 VTE Prophylaxis: SCDs while hospitalized, NURA stockings x 3 weeks, aspirin 81 mg twice daily x 6 weeks Notes For Next Care Provider Medication Changes From Visit Aspirin 81 mg twice daily x 6 weeks Celebrex 100 mg twice daily x 2 weeks Robaxin 500 mg twice daily as needed Oxycodone 510 mg every 4 hours as needed for moderatesevere pain Mag-Ox 400 milligrams twice daily Reduced vitamin D to 25 mcg daily Admission HPI Per Admitting Provider 75-year-old female PMHx prediabetes, HTN, thyroid nodules, laryngeal pharyngeal reflux, HLD, GERD, and vitamin D deficiency presenting after a fall onto her left hip while mowing the lawn on the day of arrival. Not on blood thinners. Denies any symptoms prior to the fall to include chest pain, SOB, palpitations, dizziness, or pre-syncope. No syncope. Had immediate pain to L hip and felt slightly nauseous at that time which resolves. States that her pain is "there" but manageable at this time. She denies additional pain or concerns. She is trying to have her laptop brought in so she is able to complete further work. History is limited. Evaluation reveals CBC leukocytosis 13.19, H/H stable; PT/INR WNL; CMP K 3.4, BUN/Cr ratio 24.1, glucose 117; CXR no acute findings; Femur XR/Pelvis XR subcapital fracture of L femoral neck; EKG pending. Please see Dr. Khan's attestation for adjustments/additions to treatment plan. Discharge Exam General: No acute distress, nondiaphoretic, well-developed, well-nourished. Skin: Warm, dry. No rashes or peripheral edema noted. Cardiac: Regular rate and rhythm without murmurs gallops or rubs. Pulm: Clear to auscultation bilaterally without wheezes, rales or rhonchi. Normal respiratory effort. 98% on room air. Abdominal: Soft, nontender, nondistended. Bowel sounds present. Extremities: Left hip dressing clean dry intact. Motor and sensory function intact. Neurovascularly intact. Neuro: A&O x3. No focal neurological deficits. Discharge Plan Discharge Items Patient Disposition: Home - Home Health Services Reason For Visit: L HIP FRACTURE Discharge Diagnosis: Fall resulting in osteoporotic left femur fracture s/p ORIF left hip Condition on Discharge: Good Activity: Per Instructions section Non-emergency contact: Primary Care Provider and Surgeon Call non-emergency contact if: you have any medication questions, your symptoms worsen and your pain is not controlled Follow-up/Referrals: Jose Cruz MD [Primary Care Provider] - 05/12/25 10:00 am (Follow-up in 1-2 weeks) Noam Chandler PA [Physician Passenger Booking Clerk] - 05/19/25 8:45 am Diet: Regular Addtl Attending Provider Instructions: Jael, You are admitted to the hospital after a fall resulted in a left femur fracture. You had this surgically fixed on 05/05/[address] Robert. You have recovered well from surgery and are medically stable to be discharged home. Your caseworker protective services has set up out patient physical therapy and has provided you with a walker to use at home. Upon discharge from the hospital: * Take Tylenol 1000 mg 3 times daily as your first-line pain medication. * Take oxycodone 5-10 mg as needed for moderatesevere pain. Do not drive or operate heavy machinery while taking oxycodone as it is a narcotic pain med ication. * Take Celebrex 100 mg twice daily for 2 weeks. * Take Roxiprin 500 mg twice daily as needed for muscle spasms. * Wear NURA stockings (compression socks) for 3 weeks from your surgery date. * Take aspirin 81 mg twice daily for 6 weeks from your surgery date. * Your vitamin D level was high, so your vitamin D supplementation dose was decreased to 25 mcg dailycontinue this reduced dose. * Your magnesium level is low so you were started on a magnesium supplement twice dailycontinue this. * Follow the instructions from your orthopedic team listed below. Follow-up with orthopedics on 05/19/2025 at 8:45 AM. Follow-up with your PCP in 1-2 weeks. It was a pleasure taking care of you while you were in the hospital! Addtl Staff [employer] Warfare Officer Provider Instructions: Orthopedic discharge instructions: Weightbearing as tolerated left lower extremity Ice for the first week 20 minutes 5 times daily as needed for pain and swelling. - As long as dressing is intact, you may shower. Do not submerge wound underwater. - May change dressing as needed with 4x4 gauze, and tegaderm. Ok to shower as long as dressing is intact. Do not get wound wet. No submerging wound in water. Aspirin 81 mg twice daily for 6 weeks for DVT prophylaxis. NURA stockings bilaterally for 3 weeks. Tylenol 1000 mg every 8 hours as needed - Celebrex 100 mg twice daily for the next 2 weeks - Oxycodone per primary service - No hip precautions are indicated - Follow up in our clinic as scheduled for zipline/staple removal Pending Studies at Discharge: No Stand-Alone Forms: [facility], Smoking Cessation Medications and DC Order Prescriptions: New methocarbamol 500 mg Tablet 500 mg PO BID PRN (Reason: muscle spasm) Qty: 14 0RF aspirin 81 mg Tablet,Delayed Release (Dr/Ec) 81 mg PO BID Qty: 30 0RF acetaminophen [Tylenol Extra Strength] 500 mg Tablet 1,000 mg PO Q8@0000,0800,1600 Qty: 30 0RF celecoxib [Celebrex] 100 mg Capsule 100 mg PO BID Qty: 28 0RF oxycodone 5 mg Tablet 5 mg PO Q4H PRN (Reason: pain) Qty: 10 0RF magnesium oxide 400 mg (241.3 mg magnesium) Tablet 400 mg PO BID Qty: 60 0RF cholecalciferol (vitamin D3) 25 mcg (1,000 unit) Capsule 25 mcg PO QPM Qty: 30 0RF Continued fenofibrate nanocrystallized 145 mg tablet 145 mg PO QPM Qty: 90 3RF esomeprazole magnesium 40 mg capsule,delayed release(DR/EC) 40 mg PO DAILY Qty: 90 3RF bupropion HCl 75 mg tablet 75 mg PO DAILY Qty: 90 1RF amlodipine 5 mg tablet 5 mg PO QPM Qty: 90 3RF triamterene-hydrochlorothiazid 37.5-25 mg tablet 1 tab PO QPM Qty: 90 3RF multivitamin Tablet 1 tab PO QPM PreserVision AREDS [id number] [id number]-[id number] capsule 2 cap PO QPM cyanocobalamin (vitamin B-12) 100 mcg tablet 100 mcg PO QPM omega 1-ltm-wme-fish oil 60-90-500 mg capsule 1 cap PO QPM metformin 500 mg tablet 500 mg PO TIDWMEAL Qty: 270 3RF loratadine 10 mg Tablet 10 mg PO QPM melatonin 3 mg Tablet 9 mg PO HS Discontinued cholecalciferol (vitamin D3) 5,000 unit capsule 5,000 units PO QPM Discharge Orders: Discharge Order (Routine); Ordered 05/09/25 Ordered By: Ammy Peralta Admission Data Admit Date/Time: 05/04/25 22:08 Attending Provider: Cally Ramirez Admit Provider: Blanche Khan Primary Care Provider: Jose Cruz V. Other Providers: Jose Cruz Robert; Blanche Khan Other Interventions: Discharge Summary Assessment (RN) Last Done: 05/09/25 12:52 Hospital Stay Data Consultations 05/04/25 21:48 ED Decision to Admit Stat 05/05/25 00:24 Consult Orthopedic Surgery Routine Procedures Performed Operation Date: 05/05/25 10:15 Actual Procedures p Left Hip Open Reduction with Internal Fixation(Left) - Jose Cruz Robert MD Diagnostic Imagining Performed Chest X-Ray 05/04/25 00:00 Exam(s): XR CXR 1 VIEW EXAM: XR Chest, 1 View CLINICAL HISTORY: Reason for exam: LEFT HIP FX. TECHNIQUE: Frontal view of the chest. COMPARISON: 11/09/2023 FINDINGS: Lungs: No consolidation. No overt edema. Pleural space: No pleural effusion. No pneumothorax. Heart: Unremarkable. No cardiomegaly. IMPRESSION: No acute cardiopulmonary abnormality. Electronically signed by: Jesu Rankin MD 05/04/25 23:19 PM Femur X-Ray 05/04/25 20:16 Exam(s): XR LEFT FEMUR, 2 views EXAM: XR Left Femur, 2 Views CLINICAL HISTORY: Reason for exam: fall, left hip and leg pain. TECHNIQUE: Frontal and lateral views of the left femur. COMPARISON: No relevant prior studies available. FINDINGS: Bones/joints: Subcapital femoral neck fracture on the left. Degenerative changes in the medial compartment of the knee. Soft tissues: Unremarkable. IMPRESSION: Subcapital femoral neck fracture on the left. Electronically signed by: Jesu Rankin MD 05/04/25 23:18 PM Pelvis X-Ray 05/04/25 20:16 Exam(s): XR PELVIS, 1-2 views EXAM: XR Pelvis, 1 or 2 Views CLINICAL HISTORY: Reason for exam: fall, left hip pain. TECHNIQUE: Frontal view of the pelvis. COMPARISON: No relevant prior studies available. FINDINGS: Bones/joints: Subcapital femoral neck fracture on the left. Osteopenia which somewhat limits evaluation. Degenerative changes in the lumbar spine. Other findings: Calcified fibroid in the pelvis. IMPRESSION: Subcapital femoral neck fracture on the left. Electronically signed by: Jesu Rankin MD 05/04/25 23:19 PM Hip X-Ray 05/05/25 00:00 FL hip LT 2-3V CLINICAL HISTORY: LEFT HIP FX COMPARISON STUDY: 05/04/2025 FLUOROSCOPY TIME: 62 seconds FLUOROSCOPY IMAGES: 4 EXPOSURE DOSE: 15 mGy FINDINGS: Fluoroscopy was provided for left hip internal fixation. IMPRESSION: Intraoperative fluoroscopy. ACT 112: Negative or not required by law. Electronically signed by: Godfrey Maddox M.D. 05/06/2025 8:36 AM Pending Results Patient Have Any Pending Studies at Discharge: No Discharge Instructions Given to Patient (Per Discharging Provider) Jael, You are admitted to the hospital after a fall resulted in a left femur fracture. You had this surgically fixed on 05/05/[address] Robert. You have recovered well from surgery and are medically stable to be discharged home. Your caseworker protective services has set up out patient physical therapy and has provided you with a walker to use at home. Upon discharge from the hospital: * Take Tylenol 1000 mg 3 times daily as your first-line pain medication. * Take oxycodone 5-10 mg as needed for moderatesevere pain. Do not drive or o perate heavy machinery while taking oxycodone as it is a narcotic pain medication. * Take Celebrex 100 mg twice daily for 2 weeks. * Take Roxiprin 500 mg twice daily as needed for muscle spasms. * Wear NURA stockings (compression socks) for 3 weeks from your surgery date. * Take aspirin 81 mg twice daily for 6 weeks from your surgery date. * Your vitamin D level was high, so your vitamin D supplementation dose was decreased to 25 mcg dailycontinue this reduced dose. * Your magnesium level is low so you were started on a magnesium supplement twice dailycontinue this. * Follow the instructions from your orthopedic team listed below. Follow-up with orthopedics on 05/19/2025 at 8:45 AM. Follow-up with your PCP in 1-2 weeks. It was a pleasure taking care of you while you were in the hospital! Supervising Physician Co-Signing Physician Notes PA Supervision Note: I did not personally see or examine the patient today, but I verified all patrick points of FRANKIE Peralta's assessment and plan with the following exceptions/additions: None Total Time Total Time Spent Total Time Spent (In Minutes): Greater than 30 minutes spent completing this discharge process including direct patient care, medication reconciliation, documentation, review of labs and images, and coordination of care. Coding Level of Care Code 35924 INP/OBS DISCH >30 MIN Diagnoses Subcapital fracture of left femur S72.012A Hypomagnesemia E83.42
[2025-05-09 12:53] VITALS: PULSE 93
== END 2025-05-09 13:32 | disposition home health service (06) | DRG 481 ==
LOC: ED 19:52 → 3W 22:08 → SUATTDRO 22:08 → 3W 23:50